=== PATIENT | male | born 1970 | race Caucasian/White ===

== ENCOUNTER 2017-02-03 08:57 | Observation (INO) | payer MEDICARE ==
[~2017-02-03] VITALS: Ht 162.6 cm; Wt 103.3 kg
[~2017-02-03 08:57] MED LIST: ARIP10TA15 PO; LITH150C PO; METO25TA6 PO; TRAZ-173 PO
--- OUTSIDE RECORDS SUMMARY | 2017-02-03 09:03 | XMS REPORT ---
Author Angelica Hanson Organization [employer] Address Unknown Phone Unavailable Care Team Providers Care Information Coder Name Role Phone Angelica Pinon CP Unavailable Allergies No Known Allergies Problems Problem Type Condition Code Onset Dates Condition Status Assessment Hyperthyroidism E05.90 Active Problem Hyperthyroidism E05.90 Active Medications No Known Medications Results No Known Results Summary Purpose eClinicalWorks Submission
--- OUTSIDE RECORDS SUMMARY | 2017-02-03 09:03 | XMS REPORT ---
Author Angelica Hanson Organization [employer] Address Unknown Phone Unavailable Care Team Providers Care Rn Delivery Name Role Phone Angelica Pinon CP Unavailable Allergies No Known Allergies Problems Problem Type Condition Code Onset Dates Condition Status Problem Hyperthyroidism E05.90 Active Medications No Known Medications Results No Known Results Summary Purpose eClinicalWorks Submission
--- OUTSIDE RECORDS SUMMARY | 2017-02-03 09:03 | XMS REPORT ---
Author Angelica Hanson Organization [employer] Address Unknown Phone Unavailable Care Team Providers Care Carpet Or Rug Layer Helper Name Role Phone Angelica Pinon CP Unavailable Allergies No Known Allergies Problems Problem Type Condition Code Onset Dates Condition Status Problem Hyperthyroidism E05.90 Active Medications No Known Medications Results No Known Results Summary Purpose eClinicalWorks Submission
--- OUTSIDE RECORDS SUMMARY | 2017-02-03 09:03 | XMS REPORT ---
Author Angelica Hanson [facility] eClinical[employer] Address Unknown Phone Unavailable Care Team Providers Care Clinical Education Academic Coordinator Name Role Phone Angelica Pinon CP Unavailable Allergies, Adverse Reactions, Alerts Substance Reaction Event Type N.K.D.A. Info Not Available Non Drug Allergy Problems Problem Type Condition Code Onset Dates Condition Status Assessment Shortness of breath R06.02 Active Assessment Chest pain, unspecified type R07.9 Active Problem Hyperthyroidism E05.90 Active Assessment Chronic atrial fibrillation I48.2 Active Medications Medication Code System Code Instructions Start Date End Date Status Dosage Aripiprazole [facility] [address]-80 15 MG Orally Once a day 1 tablet Methimazole [facility] [address]-61 5 MG Orally 3 Times a day 2 tablet [place] Carbonate [facility] [address]-79 150 MG Orally Twice every day not defined Metoprolol Tartrate [facility] [address]-73 25 MG Orally Twice a day Jul 15, 2016 1/2 tablet Ferrous Gluconate [facility] [address]-34 324 (38 Fe) MG Orally not defined Protonix [facility] [address]-41 40 MG Orally Once a day 1 tablet Clobetasol Propionate [facility] [address]-15 0.05 % Externally Twice a day Sep 02, 2016 Oct 02, 2016 1 application to affected area Trazodone HCl [facility] [address]-57 100 MG Orally Once a day 2 tablet at bedtime Aspir-81 [facility] [address]-01 81 MG Orally Once a day Jul 15, 2016 Sep 13, 2016 1 tablet Procedures Procedure Coding System Code Date [facility] visit Established Patient CPT-4 G0467 Sep 09, 2016 OFFICE VISIT, EST-LOW COMPLEXITY (15 MIN.) CPT-4 75347 Sep 09, 2016 -ELECTROCARDIOGRAM, COMPLETE CPT-4 91768 Sep 09, 2016 Vital Signs Date/Time: Sep 09, 2016 Temperature 98.0 F Height 64 in Weight 205.8 lbs Blood Pressure Diastolic 62 mm Hg Blood Pressure Systolic 110 mm Hg Cardiac Monitoring Heart Rate 78 /min BMI 35.32 Index Oximetry 98 % Results No Known Results Summary Purpose eClinicalWorks Submission
--- OUTSIDE RECORDS SUMMARY | 2017-02-03 09:03 | XMS REPORT ---
Author Angelica Hanson [facility] eClinicalWorks Address Unknown Phone Unavailable Care Team Providers Care Barber Shop Operator Name Role Phone Angelica Pinon CP Unavailable Allergies No Known Allergies Problems Problem Type Condition Code Onset Dates Condition Status Assessment Hyperthyroidism E05.90 Active Problem Hyperthyroidism E05.90 Active Medications Medication Code System Code Instructions Start Date End Date Status Dosage Trazodone HCl [facility] [address]-22 150 MG Orally Once a day 1 tablet at bedtime Aripiprazole [facility] [address]-87 15 MG Orally Once a day 1 tablet Aspir-81 [facility] [address]-98 81 MG Orally Once a day Jul 15, 2016 Sep 13, 2016 1 tablet Metoprolol Tartrate [facility] [address]-60 25 MG Orally Twice a day Jul 15, 2016 1/2 tablet Methimazole [facility] [address]-30 5 MG Orally 3 Times a day 2 tablet [place] Carbonate [facility] [address]-52 150 MG Orally Twice every day not defined Procedures Procedure Coding System Code Date COMPREHENSIVE METABOLIC PANEL CPT-4 06976 Jul 15, 2016 LIPID PANEL CPT-4 75607 Jul 15, 2016 COMPLETE CBC W/AUTO DIFF WBC CPT-4 37994 Jul 15, 2016 TSH CPT-4 36180 Jul 15, 2016 Results Name Result Date Reference Range Unit Abnormality Flag TSH ----TSH <0.01 [id number] 0.35-4.94 uIU/mL L Lipid Panel ----VLDL Cholesterol 25 73275859 0-28 mg/dL ----LDL Cholesterol 71 82597801 0-130 mg/dL ----Cardiac Risk 3.5 57164845 0.0-5.7 ----Cholesterol 134 96590297 0-199 mg/dL ----HDL Cholesterol 38 88873406 40-84 mg/dL L ----Triglycerides 127 05606648 0-149 mg/dL CBC With Platelet and Differential ----Absolute Basophils 0.02 01639261 0.00-0.20 10*3 ----Absolute Eosinophils 0.40 98667253 0.00-0.50 10*3 ----Lymphocytes 14 61794664 20-46 % L ----Neutrophils 73 17497438 51-75 % ----Platelet Count 231 00549819 150-400 K/uL ----Eosinophils 5 77367705 0-4 % H ----RDW 20.6 28155777 11.5-14.5 % H ----Monocytes 8 10812791 4-11 % ----MCHC 32.3 37057155 32.0-36.0 g/dL ----MCH 20.4 50133506 27.0-32.0 pg L ----MCV 63.1 41739254 82.0-99.0 fL L ----Absolute Neutrophils 6.30 33995973 1.90-7.00 10*3 ----Immature Granulocytes 0.1 03057466 0.0-1.0 % ----Absolute Monocytes 0.68 05538164 0.30-1.00 10*3 ----Absolute Lymphocytes 1.25 59971008 0.80-3.30 10*3 ----Basophils 0 84774409 0-2 % ----Differential Scanned Slide 20160715 ----Polychromasia Occasional 20160715 * ----Microcytes Present 20160715 * ----WBC 8.7 13013506 4.8-10.8 K/uL ----RBC 5.78 85767192 4.60-6.20 10*6/uL ----HGB 11.8 54383973 14.0-18.0 g/dL L ----HCT 36.5 00961470 42.0-52.0 % L Comprehensive Metabolic Panel (CMP) ----Chloride 110 11110451 99-111 mEq/L ----Potassium 4.4 55999132 3.5-5.2 mEq/L ----Albumin 3.7 45572205 3.5-5.0 g/dL ----CO2 22 54574171 23-31 mEq/L L ----Alkaline Phosphatase 108 44222470 40-150 U/L ----Protein 6.8 53613474 6.1-7.7 g/dL ----Bilirubin Total 1.0 20160715 0.2-1.2 mg/dL ----Anion Gap 7 20160715 3-20 ----Calcium 8.9 82751907 8.9-10.5 mg/dL ----Globulin 3.1 20160715 1.8-4.0 g/dL ----Sodium 139 20160715 135-144 mEq/L ----BUN 15 20160715 9-21 mg/dL ----ALT (SGPT) 20 20160715 0-55 U/L ----AST (SGOT) 16 20160715 5-34 U/L ----Creatinine 0.75 20160715 0.72-1.25 mg/dL ----Glucose 94 20160715 70-99 mg/dL eGFR ----eGFR >60 20160715 >60 mL/min Non-HDL Cholesterol ----Non-HDL Cholesterol 96 27888189 0-159 mg/dL Summary Purpose eClinicalWorks Submission
--- OUTSIDE RECORDS SUMMARY | 2017-02-03 09:03 | XMS REPORT | Continuity of Care Document ---
Author Author [facility] Organization [facility] Address Unknown Phone Unavailable Allergies Active Description Code Type Severity Reaction Onset Reported/Identified Relationship to Patient Clinical Status Yes No Known Allergies MED N/A N/A Yes No Known Allergies Drug Allergy 11/05/2012 Yes No Known Drug Allergies Drug Allergy 11/05/2012 Yes No Known Food Allergies Food Allergy 11/05/2012 Yes No Known Allergies No Known Allergies Drug Allergy Unknown N/A 09/26/2014 Medications Medication Packaging Start Date Stop Date Route Dosage Sig TraZODone HCl 100 MG Oral Tablet 06/27/2015 10/26/2015 ORAL 100MG TAKE 1 OR 2 TABLETS AT BEDTIME NEEDED FOR SLEEP. Abilify 10 MG Oral Tablet 06/27/2015 10/26/2015 ORAL 10MG one tab q hs TraZODone HCl 100 MG Oral Tablet 11/07/2015 03/07/2016 ORAL 100MG TAKE 1 OR 2 TABLETS AT BEDTIME NEEDED FOR SLEEP. ARIPiprazole 10 MG Oral Tablet 11/22/2015 01/22/2016 ORAL 10MG TAKE ONE TABLET BY MOUTH ONCE DAILY AT BEDTIME ARIPiprazole 10 MG Oral Tablet 04/09/2016 10/07/2016 ORAL 10MG TAKE ONE TABLET BY MOUTH ONCE DAILY AT BEDTIME TraZODone HCl 100 MG Oral Tablet 04/09/2016 10/07/2016 ORAL 100MG TAKE 1 OR 2 TABLETS AT BEDTIME NEEDED FOR SLEEP. ARIPiprazole 15 MG Oral Tablet 07/09/2016 09/08/2016 ORAL 15MG TAKE 1 TABLET DAILY. [place] Carbonate 150 MG Oral Capsule 07/09/2016 09/08/2016 ORAL 150MG TAKE 1 CAPSULE TWICE DAILY. TraZODone HCl 100 MG Oral Tablet 07/09/2016 01/06/2017 ORAL 100MG TAKE 1 OR 2 TABLETS AT BEDTIME NEEDED FOR SLEEP. Problems Date Dx Coded Attending Type Code Diagnosis Diagnosed By 11/05/2012 Benjamin Hernandez MD Final 242.90 THYROTOX NOS W/O CRISIS 11/05/2012 Benjamin Hernandez MD Final 284.19 PANCYTOPENIA NEC 11/05/2012 Mary JEROME, Benjamin Jacob Final 296.80 BIPOLAR DISORDER NOS 11/05/2012 Mary JEROME, Benjamin Jacob Final 401.9 HYPERTENSION NOS 11/05/2012 Mary JEROME, Benjamin Jacob Final 427.31 ATRIAL FIBRILLATION 11/05/2012 Mary JEROME, Benjamin Jacob Admitting 786.50 CHEST PAIN NOS 11/05/2012 Mary JEROME, Benjamin Jacob Final 787.91 DIARRHEA 11/05/2012 Mary JEROME, Benjamin Jacob Final 790.4 ELEVAT TRANSAMINASE/LDH 11/05/2012 Mary JEROME, Benjamin Jacob Final V15.81 HX NONCOMPLIANCE MED [place] 11/05/2012 Mary JEROME, Benjamin Jacob Final V60.0 LACK OF HOUSING 11/07/2015 F F31.13 Bipolar disorder, current episode manic without psychotic features, severe Chadwick, Jermaine 11/07/2015 F E04.9 Nontoxic goiter, unspecified Chadwick, Jermaine 11/07/2015 F F10.20 Alcohol dependence, uncomplicated Chadwick , Jermaine 11/07/2015 F E04.9 Nontoxic goiter, unspecified 11/07/2015 F F10.20 Alcohol dependence, uncomplicated 11/07/2015 F F31.13 Bipolar disorder, current episode manic without psychotic features, severe 01/09/2016 F F31.13 Bipolar disorder, current episode manic without psychotic features, severe DanielleNicole ignacio Betty 01/09/2016 F E04.9 Nontoxic goiter, unspecified Danielle, Nicole Betty 01/09/2016 F F10.20 Alcohol dependence, uncomplicated Danielle , Nicole Betty 01/09/2016 F E04.9 Nontoxic goiter, unspecified 01/09/2016 F F10.20 Alcohol dependence, uncomplicated 01/09/2016 F F31.13 Bipolar disorder, current episode manic without psychotic features, severe 04/09/2016 F F31.13 Bipolar disorder, current episode manic without psychotic features, severe Chadwick, Jermaine 04/09/2016 F E04.9 Nontoxic goiter, unspecified Chadwick, Jermaine 04/09/2016 F F10.20 Alcohol dependence, uncomplicated Chadwick , Jermaine 04/09/2016 F E04.9 Nontoxic goiter, unspecified 04/09/2016 F F10.20 Alcohol dependence, uncomplicated 04/09/2016 F F31.13 Bipolar disorder, current episode manic without psychotic features, severe 07/09/2016 F F31.13 Bipolar disorder, current episode manic without psychotic features, severe DanielleNicole ignacion 07/09/2016 F E04.9 Nontoxic goiter, unspecified DanielleNicole ignacion 07/09/2016 F F10.20 Alcohol dependence, uncomplicated Danielle , Nicole Gongoran 07/09/2016 F E04.9 Nontoxic goiter, unspecified 07/09/2016 F F10.20 Alcohol dependence, uncomplicated 07/09/2016 F F31.13 Bipolar disorder, current episode manic without psychotic features, severe 11/13/2016 F F31.31 Bipolar disorder, current episode depressed, mild Morales, Shweta L 11/13/2016 F Z59.7 Insufficient social insurance and welfare support Psy, Batch 11/13/2016 F F31.31 Bipolar disorder, current episode depressed, mild Psy, Batch 11/13/2016 F E04.9 Nontoxic goiter, unspecified Morales, Shweta L 11/13/2016 F E05 Thyrotoxicosis (hyperthyroidism) Morales, Shweta L 11/13/2016 F E66.8 Other obesity Morales, Shweta L 11/13/2016 F Z59.7 Insufficient social insurance and welfare support Morales, Shweta L 12/01/2016 F F31.31 Bipolar disorder, current episode depressed, mild DanielleNicole ignacio Betty 12/01/2016 F E05 Thyrotoxicosis (hyperthyroidism) DanielleEvan ignacioelle Betty 12/01/2016 F Z59.7 Insufficient social insurance and welfare support Nicole Danielle Betty 12/01/2016 F E05 Thyrotoxicosis (hyperthyroidism) Psy, Batch 12/01/2016 F Z59.7 Insufficient social insurance and welfare support Psy, Batch 12/02/2016 F E05 Thyrotoxicosis (hyperthyroidism) Purnima Burgess 12/02/2016 F Z59.7 Insufficient social insurance and welfare support Purnima Burgess 12/02/2016 F F31.31 Bipolar disorder, current episode depressed, mild Psy, Batch 12/02/2016 F E04.9 Nontoxic goiter, unspecified Morales, Shweta L 12/02/2016 F E05 Thyrotoxicosis (hyperthyroidism) Morales, Shweta L 12/02/2016 F E66.8 Other obesity Morales, Shweta L 12/02/2016 F Z59.7 Insufficient social insurance and welfare support Morales, Shweta L 12/03/2016 F E05 Thyrotoxicosis (hyperthyroidism) Aditya, Purnima Xochitl 12/03/2016 F Z59.7 Insufficient social insurance and welfare support Chambers, Purnima Xochitl 12/04/2016 F E05 Thyrotoxicosis (hyperthyroidism) Chambers, Purnima Xochitl 12/04/2016 F Z59.7 Insufficient social insurance and welfare support Chambers, Purnima Xochitl 12/05/2016 F E05 Thyrotoxicosis (hyperthyroidism) Chambers, Purnima Xochitl 12/05/2016 F Z59.7 Insufficient social insurance and welfare support [place], Purnima Xochitl 12/05/2016 F F31.31 Bipolar disorder, current episode depressed, mild Chambers, Purnima Zelayae 12/05/2016 F E04.9 Nontoxic goiter, unspecified Morales, Shweta L 12/05/2016 F E05 Thyrotoxicosis (hyperthyroidism) Morales, Shweta L 12/05/2016 F E66.8 Other obesity Morales, Shweta L 12/05/2016 F Z59.7 Insufficient social insurance and welfare support Morales, Shweta L 12/05/2016 F F31.31 Bipolar disorder, current episode depressed, mild Chambers, Purnima Xochitl 12/05/2016 F F31.31 Bipolar disorder, current episode depressed, mild Chambers, Purnima Xochitl 12/10/2016 F F31.31 Bipolar disorder, current episode depressed, mild Chambers, Purnima Jane Procedures Code Description [place] [address] OFFICE/OUTPATIENT VISIT, Lakeshia Dillard 11/07/2015 89474 OFFICE/OUTPATIENT VISIT, Lakeshia Dillard 11/07/2015 20728 OFFICE/OUTPATIENT VISIT, Lakeshia Dillard 01/09/2016 52330 OFFICE/OUTPATIENT VISIT, Lakeshia Dillard 01/09/2016 72873 OFFICE/OUTPATIENT VISIT, Lakeshia Dillard 04/09/2016 15329 OFFICE/OUTPATIENT VISIT, Lakeshia Dillard 04/09/2016 61433 OFFICE/OUTPATIENT VISIT, Lakeshia Dillard 07/09/2016 84822 OFFICE/OUTPATIENT VISIT, Lakeshia Dillard 07/09/2016 47826 Shweta Nielsen [id number] Shweta Nielsen [id number] OFFICE/OUTPATIENT VISIT, Lakeshia Jasso 12/01/2016 50559 OFFICE/OUTPATIENT VISIT, Lakeshia Jasso 12/01/2016 35808 INITIAL HOSPITAL CARE Coyner Sally S 12/02/2016 99043 SUBSEQUENT HOSPITAL CARE CoynerSally 12/03/2016 06018 SUBSEQUENT HOSPITAL CARE CoynerSally 12/04/2016 98379 HOSPITAL DISCHARGE DAY Sally Drew 12/05/2016 Results Encounters ACCT No. Visit Date/Time Discharge Status Pt. Type Provider Facility Loc./Unit Complaint [id number] 11/05/2012 19:09:00 2011 19:03:00 DIS Inpatient Mary JEROME, Benjamin Jacob [facility] on [address]
--- OUTSIDE RECORDS SUMMARY | 2017-02-03 09:03 | XMS REPORT ---
Author Author Lopez Cee Organization e[employer]Works Address Unknown Phone Unavailable Care Team Providers Care Flat Sorter Processor Name Role Phone Lopez Cee CP Unavailable Allergies, Adverse Reactions, Alerts Substance Reaction Event Type N.K.D.A. Info Not Available Non Drug Allergy Problems Problem Type Condition Code Onset Dates Condition Status Assessment Encounter for dental examination and cleaning without abnormal findings Z01.20 Active Problem Hyperthyroidism E05.90 Active Medications Medication Code System Code Instructions Start Date End Date Status Dosage Methimazole [facility] [address]-63 5 MG Orally 3 Times a day 2 tablet Aspir-81 [facility] [address]-45 81 MG Orally Once a day Jul 15, 2016 Sep 13, 2016 1 tablet Ferrous Gluconate [facility] [address]-51 324 (38 Fe) MG Orally not defined [place] Carbonate [facility] [address]-02 150 MG Orally Twice every day not defined Trazodone HCl [facility] [address]-83 100 MG Orally Once a day 2 tablet at bedtime Clobetasol Propionate [facility] [address]-07 0.05 % Externally Twice a day Sep 02, 2016 Oct 02, 2016 1 application to affected area Protonix [facility] [address]-53 40 MG Orally Once a day 1 tablet Metoprolol Tartrate [facility] [address]-22 25 MG Orally Twice a day Jul 15, 2016 1/2 tablet Aripiprazole [facility] [address]-71 15 MG Orally Once a day 1 tablet Procedures Procedure Coding System Code Date INTRAORL - CMPL SERIES CODE 46740 CPT-4 D0210 Sep 09, 2016 COMP ORAL EVALUATION - NEW/EST PT CPT-4 D0150 Sep 09, 2016 Results No Known Results Summary Purpose eClinicalWorks Submission
--- OUTSIDE RECORDS SUMMARY | 2017-02-03 09:03 | XMS REPORT ---
Author Angelica Hanson Organization [employer] Address Unknown Phone Unavailable Care Team Providers Care Ornamental Iron Worker Apprentice Name Role Phone Angelica Pinon CP Unavailable Allergies No Known Allergies Problems Problem Type Condition Code Onset Dates Condition Status Problem Hyperthyroidism E05.90 Active Medications No Known Medications Results No Known Results Summary Purpose eClinicalWorks Submission
--- OUTSIDE RECORDS SUMMARY | 2017-02-03 09:03 | XMS REPORT ---
Author Angelica Hanson Organization [employer] Address Unknown Phone Unavailable Care Team Providers Care Document Examiner Name Role Phone Angelica Pinon CP Unavailable Allergies No Known Allergies Problems Problem Type Condition Code Onset Dates Condition Status Problem Hyperthyroidism E05.90 Active Medications Medication Code System Code Instructions Start Date End Date Status Dosage Aripiprazole [facility] [address]-87 15 MG Orally Once a day 1 tablet Metoprolol Tartrate [facility] [address]-13 25 MG Orally Twice a day Jul 15, 2016 1/2 tablet Trazodone HCl [facility] [address]-34 150 MG Orally Once a day 1 tablet at bedtime [place] Carbonate [facility] [address]-73 150 MG Orally Twice every day not defined Aspir-81 [facility] [address]-90 81 MG Orally Once a day Jul 15, 2016 Sep 13, 2016 1 tablet Methimazole [facility] [address]-36 5 MG Orally 3 Times a day 2 tablet Results No Known Results Summary Purpose eClinicalWorks Submission
--- OUTSIDE RECORDS SUMMARY | 2017-02-03 09:04 | XMS REPORT ---
Author Angelica Hanson Organization [employer] Address Unknown Phone Unavailable Care Team Providers Care Paper Products Machine Operator Name Role Phone Angelica Pinon CP Unavailable Allergies No Known Allergies Problems Problem Type Condition Code Onset Dates Condition Status Problem Hyperthyroidism E05.90 Active Medications Medication Code System Code Instructions Start Date End Date Status Dosage Protonix [facility] [address]-33 40 MG Orally Once a day 1 tablet Results No Known Results Summary Purpose eClinicalWorks Submission
--- OUTSIDE RECORDS SUMMARY | 2017-02-03 09:04 | XMS REPORT ---
Author Angelica Hanson Organization [employer] Address Unknown Phone Unavailable Care Team Providers Care Mid Level Practitioner Name Role Phone Angelica Pinon CP Unavailable Allergies, Adverse Reactions, Alerts Substance Reaction Event Type N.K.D.A. Info Not Available Non Drug Allergy Problems Problem Type Condition Code Onset Dates Condition Status Assessment Hyperthyroidism E05.90 Active Assessment Atrial fibrillation, unspecified type I48.91 Active Problem Hyperthyroidism E05.90 Active Medications Medication Code System Code Instructions Start Date End Date Status Dosage Aripiprazole [facility] [address]-89 15 MG Orally Once a day 1 tablet Metoprolol Tartrate [facility] [address]-33 25 MG Orally Twice a day Jul 15, 2016 1/2 tablet [place] Carbonate [facility] [address]-42 150 MG Orally Twice every day not defined Trazodone HCl [facility] [address]-66 150 MG Orally Once a day 1 tablet at bedtime Aspir-81 [facility] [address]-13 81 MG Orally Once a day Jul 15, 2016 Sep 13, 2016 1 tablet Methimazole [facility] [address]-62 5 MG Orally 3 Times a day 2 tablet Procedures Procedure Coding System Code Date [facility] visit New Patient CPT-4 G0466 Jul 15, 2016 OFFICE VISIT, FILLING LAYER UP-LOW COMPLEXITY (30 MIN.) CPT-4 27148 Jul 15, 2016 -ELECTROCARDIOGRAM, COMPLETE CPT-4 90717 Jul 15, 2016 Vital Signs Date/Time: Jul 15, 2016 Temperature 99.5 F Height 64 in Weight 210.4 lbs Blood Pressure Diastolic 52 mm Hg Blood Pressure Systolic 104 mm Hg Cardiac Monitoring Heart Rate 101 /min BMI 36.11 Index Oximetry 98 % Results Name Result Date Reference Range Unit Abnormality Flag GENERAL, ELECTROCARDIOGRAM, COMPLETE Summary Purpose eClinicalWorks Submission
--- OUTSIDE RECORDS SUMMARY | 2017-02-03 09:04 | XMS REPORT | Continuity of Care Document ---
Author Author [facility] Organization [facility] Address Unknown Phone Unavailable Support Name Relationship Address Phone ROSIE CRAVEN MD [address] [place] [address] Unavailable HARRIET GOMEZ Next Of Kin [place], [place] [phone] Insurance Providers Guarantor Alfonzo Mosquera Address [address] [place] [address] Email DENIED/NO TO PT [place] Payer Medicare Policy Number [id number] Subscriber's Name FifiAlfonzo Relationship 18 Self Advance Directives Directive Response Recorded Date/Time Advanced Directives Type None 06/20/16 2:40pm Chief Complaint and Reason for Visit Chief Complaint Dyspnea/Respdistress Reason for Visit Hyperthyroidism Atrial flutter with rapid ventricular response Problems Active Problems Medical Problem Onset Date Status Atrial fibrillation Unknown Acute Hypothyroidism Unknown Acute Past Problems Medical Problem Onset Date Atrial flutter with rapid ventricular response Unknown Hyperthyroidism Unknown Medications Current Home Medications Medication Dose Units Route Directions Days Qty Instructions Start Date Aripiprazole (Abilify) 10 Mg Tablet 10 Mg Oral Daily 10/24/15 Methimazole 10 Mg Tablet 10 Mg Oral Three Times A Day 10/24/15 Trazodone Hcl 100 Mg Tablet 1-2 Tab Oral Bedtime as needed for Sleep 10/24/15 Social History Social History Problem Response Recorded Date/Time Onset Date Status Chewing Tobacco Status No 06/20/2016 2:40pm Not Applicable Not Applicable Hx Substance Use No 06/20/2016 2:40pm Not Applicable Not Applicable Hx Alcohol Use No 06/20/2016 2:40pm Not Applicable Not Applicable Tobacco Usage none 10/24/2015 3:34pm Not Applicable Not Applicable Query Response Start Date Stop Date Smoking Status Never smoker Hospital Discharge Instructions No hospital discharge instructions. Plan of Care Discharge Date 06/20/16 8:32pm Disposition 02 TO [facility] Condition at Discharge Stable Prescriptions See Medication Section Functional Status No functional status results. Allergies, Adverse Reactions, Alerts No known allergies. Immunizations Query Response on File Recorded Date/Time Influenza Vaccine Hx NONE 06/20/16 2:40pm Vital Signs Acute Vital Signs Vital Response Date/Time Temperature (Fahrenheit) 98.9 deg F (96.8 - 99.1) 06/20/2016 8:32pm Temperature (Calculated Celsius) 37.61104 degrees C (36.0 - 37.3) 06/20/2016 8:32pm Pulse Rate (adult) 98 bpm (60 - 100) 06/20/2016 8:32pm Respiratory Rate 24 breaths/min (10 - 20) 06/20/2016 8:32pm O2 Sat by Pulse Oximetry 98 % (90 - 100) 06/20/2016 8:32pm Oxygen Flow Rate 15.00 L/min 06/20/2016 2:40pm Blood Pressure 122/61 mm Hg 06/20/2016 8:32pm Height (Feet) 5 feet 06/20/2016 2:40pm Height (Inches) 4.00 inches 06/20/2016 2:40pm Weight (Kilograms) 89.800 kg 06/20/2016 2:40pm Body Mass Index (BMI) 33.0 06/20/2016 2:40pm Results Laboratory Results Test Name Result Units Flags Reference Collection Date/Time Result Date/ Time Comments White Blood Count 13.4 T/MM3 H 4.5-11.0 06/20/2016 3:42pm 06/20/2016 4: 03pm Red Blood Count 6.35 M/MM3 H 4.50-5.90 06/20/2016 3:42pm 06/20/2016 4: 03pm Hemoglobin 12.6 GM/DL L 13.5-17.5 06/20/2016 3:42pm 06/20/2016 4:03pm Hematocrit 37.1 % L 41-53 06/20/2016 3:42pm 06/20/2016 4:03pm Mean Corpuscular Volume 58.4 UM3 L 80-100 06/20/2016 3:42pm 06/20/2016 4 :03pm Mean Corpuscular Hemoglobin 19.8 UUG L 26-34 06/20/2016 3:42pm 2015 4:03pm Mean Corpuscular Hemoglobin Concent 34.0 GM/DL 31-37 06/20/2016 3:42pm 06/20/2016 4:03pm RDW Standard Deviation 32.1 FL L 36.9-50.2 06/20/2016 3:42pm 06/20/2016 4:03pm Platelet Count 243 T/MM3 130-400 06/20/2016 3:42pm 06/20/2016 4:03pm Neutrophils % (Manual) 93.0 % H 33-66 06/20/2016 3:42pm 06/20/2016 4: 07pm Lymphocytes % (Manual) 4.0 % L 23-45 06/20/2016 3:42pm 06/20/2016 4: 07pm Monocytes % (Manual) 3.0 % 0-9.0 06/20/2016 3:42pm 06/20/2016 4:07pm Absolute Neutrophils (Manual) 12.5 T/MM3 H 1.8-7.7 06/20/2016 3:42pm 4:07pm Lymphocytes # (Manual) 0.5 T/MM3 L 1-4.8 06/20/2016 3:42pm 06/20/2016 4: 07pm Monocytes # (Manual) 0.4 T/MM3 0-0.8 06/20/2016 3:42pm 06/20/2016 4: 07pm Red Cell Morphology Comment ABNORMAL 06/20/2016 3:42pm 06/20/2016 4 :07pm Anisocytosis 1+ 06/20/2016 3:42pm 06/20/2016 4:07pm Microcytosis 1+ 06/20/2016 3:42pm 06/20/2016 4:07pm Mell Cells 1+ 06/20/2016 3:42pm 06/20/2016 4:07pm Icterus Index < 2 0-7 06/20/2016 3:42pm 06/20/2016 4:01pm Chemistry Specimen Hemolysis < 15 0-25 06/20/2016 3:42pm 06/20/2016 4 :01pm 0-25: Specimen Exhibited No Hemolysis. Turbidity < 20 0-20 06/20/2016 3:pm 06/20/2016 4:01pm Sodium Level 141 MEQ/L 134-144 06/20/2016 3:42pm 06/20/2016 4:03pm Potassium Level 2.5 MEQ/L *L 3.6-5 06/20/2016 3:42pm 06/20/2016 4:13pm Chloride Level 104 MEQ/L 98-107 06/20/2016 3:42pm 06/20/2016 4:03pm Carbon Dioxide Level 12 MEQ/L L 22-30 06/20/2016 3:42pm 06/20/2016 4: 03pm Anion Gap 25 MEQ/L H 5-15 06/20/2016 3:42pm 06/20/2016 4:03pm Blood Urea Nitrogen 19.0 MG/DL 9-20 06/20/2016 3:42pm 06/20/2016 4: 03pm Creatinine 1.2 MG/DL 0.8-1.5 06/20/2016 3:42pm 06/20/2016 4:03pm BUN/Creatinine Ratio 16 RATIO 6-26 06/20/2016 3:42pm 06/20/2016 4:03pm Glomerular Filtration Rate Calc 65 06/20/2016 3:42pm 06/20/2016 4: 03pm Glucose Level 158 MG/DL H 75-110 06/20/2016 3:42pm 06/20/2016 4:03pm Calculated Osmolality 276 MOSM/KG 261-280 06/20/2016 3:42pm 06/20/2016 4:03pm Calcium Level 8.9 MG/DL 8.4-10.2 06/20/2016 3:42pm 06/20/2016 4:03pm Total Bilirubin 3.30 MG/DL H 0.20-1.30 06/20/2016 3:42pm 06/20/2016 4: 03pm Alkaline Phosphatase 81 U/L 38-126 06/20/2016 3:42pm 06/20/2016 4:03pm Total Protein 6.4 G/DL 6.3-8.2 06/20/2016 3:42pm 06/20/2016 4:03pm Albumin 3.3 G/DL L 3.5-5.0 06/20/2016 3:42pm 06/20/2016 4:03pm Globulin 3.1 G/DL 2.4-3.6 06/20/2016 3:42pm 06/20/2016 4:03pm Albumin/Globulin Ratio 1.1 RATIO 1.1-2.2 06/20/2016 3:42pm 06/20/2016 4 :03pm Aspartate Amino Transf (AST/SGOT) 110 U/L H 17-59 06/20/2016 3:42pm 4:03pm Alanine Aminotransferase (ALT/SGPT) 93 U/L H 21-72 06/20/2016 3:42pm 4:03pm Troponin I 0.061 ng/ml 0-0.12 06/20/2016 3:42pm 06/20/2016 4:12pm Troponin values with a difference of 55% increase from orginal troponin value represent a true biological DELTA value. (%increase Calc=Orginal Troponin value, divided by subsequent Troponin value, multiplied by 100) C-Reactive Protein 12.1 MG/L H 0-9 06/20/2016 3:42pm 06/20/2016 4:03pm SF-Lgo-W-Type Natriuretic Peptide 467 PG/ML H 0-175 06/20/2016 3:42pm 4:12pm Rule in cut points: <50 years old=450; 50-75 years old=900; >75 years old=1800; When utilizing ProBNP rule-in cut points, adjustment for impaired renal function is typically not required. Magnesium Level 1.5 MG/DL L 1.6-2.3 06/20/2016 3:42pm 06/20/2016 4:03pm Acetaminophen Level < 10 UG/ML L 10-06/20/2016 3:pm 06/20/2016 4: 01pm TOXIC <4 HR POST INGESTION: >150 MG/L; TOXIC <12 HR POST INGESTION: >50 MG/L Salicylates Level < 1.0 MG/DL L 2-20 06/20/2016 3:pm 06/20/2016 4: 01pm Alcohol, Quantitative <10 MG/DL <10 06/20/2016 3:pm 06/20/2016 4: 01pm [place] Level < 0.2 MMOL/L L 0.6-1.2 06/20/2016 3:pm 06/20/2016 4: 04pm Thyroid Stimulating Hormone (TSH) < 0.02 MIU/L L 0.47-4.68 06/20/2016 3: pm 06/20/2016 4:34pm Arterial Blood pH 7.410 7.350-7.450 06/20/2016 4:20pm 06/20/2016 4: 31pm Arterial Blood Partial Pressure CO2 20 MMHG *L 34-45 06/20/2016 4: 4:31pm Arterial Blood pO2 at Patient Temp 98 MMHG 80-100 06/20/2016 4: 4:31pm Arterial Blood HCO3 13 MEQ/L L -06/20/2016 4:06/20/2016 4: 31pm Arterial Blood Total CO2 13.3 MEQ/L L -06/20/2016 4:2015 4:31pm Arterial Blood Base Excess -9.8 MMOL/L L -2.0-2.0 06/20/2016 4: 4:31pm Arterial Blood Oxygen Saturation 98.0 % 95.0-98.0 06/20/2016 4: 4:31pm Oxygen Delivery Method (LAB) ROOM AIR 06/20/2016 4:06/20/2016 4:31pm Urine Collection Type [place]WELL[place] 06/20/2016 4:2015 4:40pm Urine Color YELLOW YELLOW 06/20/2016 4:06/20/2016 4:40pm Urine Turbidity SL CLOUDY CLEAR 06/20/2016 4:06/20/2016 4:40pm Urine Specific [place] 1.010 L 1.015-1.025 06/20/2016 4:2015 4:40pm Urine pH 6.0 5.0-8.0 06/20/2016 4:06/20/2016 4:40pm Urine Leukocyte Esterase NEGATIVE NEGATIVE 06/20/2016 4:2015 4:40pm Urine Nitrite NEGATIVE NEGATIVE 06/20/2016 4:06/20/2016 4:40pm Urine Protein 1+ A NEGATIVE 06/20/2016 4:06/20/2016 4:40pm Urine Glucose (UA) NEGATIVE NEGATIVE 06/20/2016 4:06/20/2016 4: 40pm Urine Ketones 2+ A NEGATIVE 06/20/2016 4:06/20/2016 4:40pm Urine Urobilinogen 0.2 EU/DL NORMAL 06/20/2016 4:06/20/2016 4: 40pm Urine Bilirubin NEGATIVE NEGATIVE 06/20/2016 4:27pm 06/20/2016 4: 40pm Urine Blood 3+ A NEGATIVE 06/20/2016 4:pm 06/20/2016 4:40pm Urine WBC 0-1 /HPF 0-5 06/20/2016 4:pm 06/20/2016 5:10pm Urine RBC 10-20 /HPF H 0-3 06/20/2016 4:pm 06/20/2016 5:10pm Urine Bacteria NONE SEEN NEGATIVE 06/20/2016 4:06/20/2016 5: 10pm Urine Amorphous Urates FEW 06/20/2016 4:pm 06/20/2016 5:10pm Urine Mucus PRESENT 06/20/2016 4:pm 06/20/2016 5:10pm Urine Culture Indicated CULT NOT INDICATED 06/20/2016 4:pm 2015 5:10pm Glucometer 68 mg/dL L 75-110 06/20/2016 5:22pm 06/20/2016 5:26pm Name: ALFONZO MOSQUERA Unit #: [id number] : 1970 Sex: M Admit Date: Loc / Svc: ED Discharge Date: DIAGNOSTIC IMAGING REPORT Report #: [id number] [place], [place] Indication: ITS.REASON: SVT PROCEDURE: CHEST 1 VIEW: Encounter: Initial Comparison: October 24, 2015 FINDINGS: The lungs are clear. There is no abnormal airspace opacity, pleural effusion or pneumothorax identified. The heart size, pulmonary vasculature and mediastinum are within normal limits. IMPRESSION: No acute cardiopulmonary abnormality. . Procedures No known history of procedures. Encounters Encounter Location Arrival/Admit Date Discharge/Depart Date Attending Provider Departed Emergency Room [facility] 06/20/16 2:38pm 06/20/16 8: 32pm ROSIE CRAVEN MD Recent Diagnosis
--- OUTSIDE RECORDS SUMMARY | 2017-02-03 09:04 | XMS REPORT ---
Author Angelica Hanson Organization [employer] Address Unknown Phone Unavailable Care Team Providers Care Sewing Department Supervisor Name Role Phone Angelica Pinon CP Unavailable Allergies No Known Allergies Problems Problem Type Condition Code Onset Dates Condition Status Problem Hyperthyroidism E05.90 Active Medications No Known Medications Results No Known Results Summary Purpose [employer] Submission
--- OUTSIDE RECORDS SUMMARY | 2017-02-03 09:04 | XMS REPORT ---
Author Angelica Hanson Organization [employer] Address Unknown Phone Unavailable Care Team Providers Care Tip Scourer Name Role Phone Angelica Pinon CP Unavailable Allergies No Known Allergies Problems Problem Type Condition Code Onset Dates Condition Status Problem Hyperthyroidism E05.90 Active Medications Medication Code System Code Instructions Start Date End Date Status Dosage Methimazole [facility] [address]-44 5 MG Orally 3 Times a day 2 tablet Aspir-81 [facility] [address]-83 81 MG Orally Once a day Jul 15, 2016 Sep 13, 2016 1 tablet [place] Carbonate [facility] [address]-44 150 MG Orally Twice every day not defined Trazodone HCl [facility] [address]-28 150 MG Orally Once a day 1 tablet at bedtime Aripiprazole [facility] [address]-71 15 MG Orally Once a day 1 tablet Metoprolol Tartrate [facility] [address]-08 25 MG Orally Twice a day Jul 15, 2016 1/2 tablet Results No Known Results Summary Purpose [employer] Submission
--- OUTSIDE RECORDS SUMMARY | 2017-02-03 09:04 | XMS REPORT ---
Author Angelica Hanson Organization [employer] Address Unknown Phone Unavailable Care Team Providers Care Bottom Ironer Name Role Phone Angelica Pinon CP Unavailable Allergies No Known Allergies Problems Problem Type Condition Code Onset Dates Condition Status Problem Hyperthyroidism E05.90 Active Medications Medication Code System Code Instructions Start Date End Date Status Dosage Protonix [facility] [address]-00 40 MG Orally Once a day 1 tablet Methimazole [facility] [address]-57 5 MG Orally 3 Times a day 2 tablet [place] Carbonate [facility] [address]-67 150 MG Orally Twice every day not defined Ferrous Gluconate [facility] [address]-77 324 (38 Fe) MG Orally not defined Metoprolol Tartrate [facility] [address]-24 25 MG Orally Twice a day Jul 15, 2016 1/2 tablet Aripiprazole [facility] [address]-04 15 MG Orally Once a day 1 tablet Trazodone HCl [facility] [address]-24 100 MG Orally Once a day 2 tablet at bedtime Results No Known Results Summary Purpose [employer] Submission
--- OUTSIDE RECORDS SUMMARY | 2017-02-03 09:04 | XMS REPORT ---
Author Angelica Hanson Organization [employer] Address Unknown Phone Unavailable Care Team Providers Care Ager Operator Name Role Phone Angelica Pinon CP Unavailable Allergies No Known Allergies Problems Problem Type Condition Code Onset Dates Condition Status Assessment Encounter for long-term current use of medication Z79.899 Active Problem Hyperthyroidism E05.90 Active Medications Medication Code System Code Instructions Start Date End Date Status Dosage Trazodone HCl [facility] [address]-53 100 MG Orally Once a day 2 tablet at bedtime Clobetasol Propionate [facility] [address]-59 0.05 % Externally Twice a day Sep 02, 2016 Oct 02, 2016 1 application to affected area Protonix [facility] [address]-83 40 MG Orally Once a day 1 tablet Aripiprazole [facility] [address]-51 15 MG Orally Once a day 1 tablet Methimazole [facility] [address]-50 5 MG Orally 3 Times a day 2 tablet Aspir-81 [facility] [address]-28 81 MG Orally Once a day Jul 15, 2016 Sep 13, 2016 1 tablet Ferrous Gluconate [facility] [address]-10 324 (38 Fe) MG Orally not defined Metoprolol Tartrate [facility] [address]-50 25 MG Orally Twice a day Jul 15, 2016 1/2 tablet [place] Carbonate [facility] [address]-76 150 MG Orally Twice every day not defined Procedures Procedure Coding System Code Date LITHIUM CPT-4 50126 Sep 02, 2016 Results No Known Results Summary Purpose [employer] Submission
--- OUTSIDE RECORDS SUMMARY | 2017-02-03 09:04 | XMS REPORT | Continuity of Care Document ---
Author Author [facility] Organization [facility] Address Unknown Phone Unavailable Support Name Relationship Address Phone ROSIE CRAVEN MD Caregiver [address] [place] [address] [place] [address] Unavailable ELISABET CALIX Next Of Kin Unknown [phone] Insurance Providers Guarantor Alfonzo Calix Address [address] [place] [address] Email DENIED/NO TO PT [place] Payer Medicare Policy Number [id number] Subscriber's Name Alfonzo Calix Relationship 18 Self Advance Directives Directive Response Recorded Date/Time Advanced Directives Type None 06/27/16 10:25am Chief Complaint and Reason for Visit Chief Complaint Psychiatric Problems Reason for Visit Suicide attempt by drug ingestion Suicidal ideation Bipolar disorder Problems Active Problems Medical Problem Onset Date Status Atrial fibrillation Unknown Acute Hypothyroidism Unknown Acute Past Problems Medical Problem Onset Date Atrial flutter with rapid ventricular response Unknown Bipolar disorder Unknown Hyperthyroidism Unknown Suicidal ideation Unknown Suicide attempt by drug ingestion Unknown Medications Current Home Medications Medication Dose Units Route Directions Days Qty Instructions Start Date Aripiprazole (Abilify) 10 Mg Tablet 10 Mg Oral Daily 10/24/15 Aspirin (Aspir 81) 81 Mg Tablet. 81 Mg Oral Daily 06/27/16 Docusate Sodium 100 Mg Capsule 100 Mg Oral Twice A Day 06/27/16 Folic Acid 1 Mg Tablet 1 Mg Oral Daily 06/27/16 [place] Carbonate 150 Mg Capsule 150 Mg Oral Twice A Day 06/27/16 Methimazole 10 Mg Tablet 10 Mg Oral Three Times A Day 10/24/15 Methimazole 10 Mg Tablet 20 Mg Oral Twice A Day 06/27/16 Metoprolol Tartrate 25 Mg Tablet 50 Mg Oral Twice Daily With Meals 06/27/16 Oxycodone Hcl 5 Mg Tablet 5 Mg Oral Every 3 Hours as needed for Pain 06/27/16 Pantoprazole Sodium 40 Mg Tablet. 40 Mg Oral Before Breakfast 06/27/16 Sennosides (Senna) 8.6 Mg Tablet 8.6 Mg Oral Daily as needed for Constipation 06/27/16 Thiamine (Thiamine Hcl) 100 Mg Tablet 100 Mg Oral Daily 06/27/16 Trazodone Hcl 100 Mg Tablet 1-2 Tab Oral Bedtime as needed for Sleep 10/24/15 Social History Social History Problem Response Recorded Date/Time Onset Date Status Hx Substance Use No 06/27/2016 10:47am Not Applicable Not Applicable Hx Alcohol Use No 06/27/2016 10:47am Not Applicable Not Applicable Tobacco Usage none 10/24/2015 3:34pm Not Applicable Not Applicable Query Response Start Date Stop Date Smoking Status Former smoker Hospital Discharge Instructions No hospital discharge instructions. Plan of Care Discharge Date 06/27/16 4:14pm Disposition 64 TO [place] Condition at Discharge Stable Prescriptions See Medication Section Functional Status No functional status results. Allergies, Adverse Reactions, Alerts No known allergies. Immunizations Query Response on File Recorded Date/Time Influenza Vaccine Hx NONE 06/27/16 10:47am Vital Signs Acute Vital Signs Vital Response Date/Time Temperature (Fahrenheit) 97.7 deg F (96.8 - 99.1) 06/27/2016 4:14pm Temperature (Calculated Celsius) 36.12888 degrees C (36.0 - 37.3) 06/27/2016 4:14pm Pulse Rate (adult) 85 bpm (60 - 100) 06/27/2016 4:14pm Respiratory Rate 27 breaths/min (10 - 20) 06/27/2016 4:14pm O2 Sat by Pulse Oximetry 99 % (90 - 100) 06/27/2016 4:14pm Oxygen Flow Rate 15.00 L/min 06/20/2016 2:40pm Blood Pressure 109/63 mm Hg 06/27/2016 4:14pm Height (Feet) 5 feet 06/27/2016 10:25am Height (Inches) 2.00 inches 06/27/2016 10:25am Weight (Kilograms) 109.000 kg 06/27/2016 10:25am Body Mass Index (BMI) 43.0 06/27/2016 10:25am Results Laboratory Results Test Name Result Units Flags Reference Collection Date/Time Result Date/ Time Comments Anisocytosis 1+ 06/20/2016 3:42pm 06/20/2016 4:07pm Microcytosis 1+ 06/20/2016 3:42pm 06/20/2016 4:07pm [place] Cells 1+ 06/20/2016 3:42pm 06/20/2016 4:07pm Total Bilirubin 3.30 MG/DL H 0.20-1.30 06/20/2016 [...] MG/L H 0-9 06/20/2016 3:42pm 06/20/2016 4:03pm PI-Bxd-B-Type Natriuretic Peptide 467 PG/ML H 0-175 06/20/2016 3:42pm 4:12pm Rule in cut points: <50 years old=450; 50-75 years old=900; >75 years old=1800; When utilizing ProBNP rule-in cut points, adjustment for impaired renal function is typically not required. Magnesium Level 1.5 MG/DL L 1.6-2.3 06/20/2016 3:42pm 06/20/2016 4:03pm Arterial Blood pH 7.410 7.350-7.450 06/20/2016 4:06/20/2016 4: 31pm Arterial Blood Partial Pressure CO2 [...] (LAB) ROOM AIR 06/20/2016 4:06/20/2016 4:31pm Urine WBC 0-1 /HPF 0-5 06/20/2016 4:06/20/2016 5:10pm Urine RBC 10-20 /HPF H 0-3 06/20/2016 4:06/20/2016 5:10pm Urine Bacteria NONE SEEN NEGATIVE 06/20/2016 4:06/20/2016 5: 10pm Urine Amorphous Urates FEW 06/20/2016 4:06/20/2016 5:10pm Urine Mucus PRESENT 06/20/2016 4:06/20/2016 5:10pm Urine Culture Indicated CULT NOT INDICATED 06/20/2016 4:2015 5:10pm Glucometer 68 mg/dL L 75-110 06/20/2016 5:pm 06/20/2016 5:26pm White Blood Count 10.9 T/MM3 4.5-11.0 06/27/2016 12:31pm 06/27/2016 12: 54pm Red Blood Count 5.36 M/MM3 4.50-5.90 06/27/2016 12:06/27/2016 12: 54pm Hemoglobin 10.6 GM/DL L 13.5-17.5 06/27/2016 12:31p 06/27/2016 12:54pm Hematocrit 32.7 % L 41-53 06/27/2016 12:31p 06/27/2016 12:54pm Mean Corpuscular Volume 61.0 UM3 L 80-100 06/27/2016 12:31p 06/27/2016 12:54pm Mean Corpuscular Hemoglobin 19.8 UUG L 26-34 06/27/2016 12:31p 2015 12:54pm Mean Corpuscular Hemoglobin Concent 32.4 GM/DL 31-37 06/27/2016 12:31p 06/27/2016 12:54pm RDW Standard Deviation 33.7 FL L 36.9-50.2 06/27/2016 12:31p 2015 12:54pm Platelet Count 226 T/MM3 130-400 06/27/2016 12:31p 06/27/2016 12:54pm Neutrophils % (Manual) 73.0 % H 33-66 06/27/2016 12:31p 06/27/2016 1: 03pm Band Neutrophils % 3.0 % 0-6 06/27/2016 12:31p 06/27/2016 1:03pm Lymphocytes % (Manual) 17.0 % L 23-45 06/27/2016 12:31p 06/27/2016 1: 03pm Monocytes % (Manual) 1.0 % 0-9.0 06/27/2016 12:31p 06/27/2016 1:03pm Eosinophils % (Manual) 6.0 % H 0-4 06/27/2016 12:31p 06/27/2016 1:03pm Band Neutrophils # 0.3 T/MM3 06/27/2016 12:31p 06/27/2016 1:03pm Absolute Neutrophils (Manual) 8.0 T/MM3 H 1.8-7.7 06/27/2016 12:31p 03/2016 1:03pm Lymphocytes # (Manual) 1.9 T/MM3 1-4.8 06/27/2016 12:31p 06/27/2016 1: 03pm Monocytes # (Manual) 0.1 T/MM3 0-0.8 06/27/2016 12:31p 06/27/2016 1: 03pm Eosinophils # (Manual) 0.7 T/MM3 H 0-0.5 06/27/2016 12:31pm 06/27/2016 1 :03pm Red Cell Morphology Comment NORMAL 06/27/2016 12:31p 06/27/2016 1: 03pm Icterus Index < 2 0-7 06/27/2016 12:31p 06/27/2016 1:06pm Chemistry Specimen Hemolysis < 15 0-25 06/27/2016 12:31p 06/27/2016 1:06pm 0-25: Specimen Exhibited No Hemolysis. Turbidity < 20 0-20 06/27/2016 12:31pm 06/27/2016 1:06pm Sodium Level 141 MEQ/L 134-144 06/27/2016 12:31p 06/27/2016 1:06pm Potassium Level 4.2 MEQ/L 3.6-5 06/27/2016 12:31pm 06/27/2016 1:06pm Chloride Level 105 MEQ/L 98-107 06/27/2016 12:31p 06/27/2016 1:06pm Carbon Dioxide Level 23 MEQ/L 22-30 06/27/2016 12:31p 06/27/2016 1: 06pm Anion Gap 13 MEQ/L 5-15 06/27/2016 12:31p 06/27/2016 1:06pm Blood Urea Nitrogen 12.0 MG/DL 9-20 06/27/2016 12:31pm 06/27/2016 1: 06pm Creatinine 0.8 MG/DL 0.8-1.5 06/27/2016 12:31pm 06/27/2016 1:06pm BUN/Creatinine Ratio 15 RATIO 6-26 06/27/2016 12:31pm 06/27/2016 1: 06pm Glomerular Filtration Rate Calc 104 06/27/2016 12:31pm 06/27/2016 1 :06pm Glucose Level 88 MG/DL 75-110 06/27/2016 12:31pm 06/27/2016 1:06pm Calculated Osmolality 270 MOSM/KG 261-280 06/27/2016 12:31pm 2015 1:06pm Calcium Level 8.5 MG/DL 8.4-10.2 06/27/2016 12:31pm 06/27/2016 1:06pm Acetaminophen Level < 10 UG/ML L 10-06/27/2016 12:31pm 06/27/2016 1: 06pm TOXIC <4 HR POST INGESTION: >150 MG/L; TOXIC <12 HR POST INGESTION: >50 MG/L Salicylates Level < 1.0 MG/DL L 2-20 06/27/2016 12:31pm 06/27/2016 1: 06pm Alcohol, Quantitative <10 MG/DL <10 06/27/2016 12:31pm 06/27/2016 1: 06pm [place] Level < 0.2 MMOL/L L 0.6-1.2 06/27/2016 12:31pm 06/27/2016 2: 10pm Thyroid Stimulating Hormone (TSH) < 0.02 MIU/L L 0.47-4.68 06/27/2016 12: 31pm 06/27/2016 3:31pm Urine Collection Type [place] 06/27/2016 12:27pm 06/27 12:40pm Urine Color YELLOW YELLOW 06/27/2016 12:27pm 06/27/2016 12:40pm Urine Turbidity CLEAR CLEAR 06/27/2016 12:27pm 06/27/2016 12:40pm Urine Specific [place] 1.025 1.015-1.025 06/27/2016 12:27pm 2015 12:40pm Urine pH 6.5 5.0-8.0 06/27/2016 12:27pm 06/27/2016 12:40pm Urine Leukocyte Esterase NEGATIVE NEGATIVE 06/27/2016 12:27pm 2015 12:40pm Urine Nitrite NEGATIVE NEGATIVE 06/27/2016 12:27pm 06/27/2016 12: 40pm Urine Protein NEGATIVE NEGATIVE 06/27/2016 12:27pm 06/27/2016 12: 40pm Urine Glucose (UA) NEGATIVE NEGATIVE 06/27/2016 12:27pm 06/27/2016 12 :40pm Urine Ketones NEGATIVE NEGATIVE 06/27/2016 12:27pm 06/27/2016 12: 40pm Urine Urobilinogen 1.0 EU/DL NORMAL 06/27/2016 12:27pm 06/27/2016 12: 40pm Urine Bilirubin NEGATIVE NEGATIVE 06/27/2016 12:27pm 06/27/2016 12: 40pm Urine Blood NEGATIVE NEGATIVE 06/27/2016 12:27pm 06/27/2016 12:40pm Urinalysis Comment MICROSCOPIC NOT IND. 06/27/2016 12:27pm 2015 12:40pm Procedures No known history of procedures. Encounters Encounter Location Arrival/Admit Date Discharge/Depart Date Attending Provider Departed Emergency Room [facility] 06/27/16 10:22am 06/27/16 4: 14pm ROSIE CRAVEN MD Departed Emergency Room [facility] 06/20/16 2:38pm 06/20/16 8: 32pm ROSIE CRAVEN MD Recent Diagnosis
--- OUTSIDE RECORDS SUMMARY | 2017-02-03 09:04 | XMS REPORT ---
Author Angelica Hanson Organization [employer] Address Unknown Phone Unavailable Care Team Providers Care Talcer Name Role Phone Angelica Pinon CP Unavailable Allergies, Adverse Reactions, Alerts Substance Reaction Event Type N.K.D.A. Info Not Available Non Drug Allergy Problems Problem Type Condition Code Onset Dates Condition Status Assessment Encounter for long-term current use of medication Z79.899 Active Assessment Psoriasis L40.9 Active Problem Hyperthyroidism E05.90 Active Medications Medication Code System Code Instructions Start Date End Date Status Dosage Trazodone HCl [facility] [address]-20 100 MG Orally Once a day 2 tablet at bedtime Ferrous Gluconate [facility] [address]-46 324 (38 Fe) MG Orally not defined Protonix [facility] [address]-26 40 MG Orally Once a day 1 tablet [place] Carbonate [facility] [address]-50 150 MG Orally Twice every day not defined Aripiprazole [facility] [address]-84 15 MG Orally Once a day 1 tablet Methimazole [facility] [address]-36 5 MG Orally 3 Times a day 2 tablet Clobetasol Propionate [facility] [address]-58 0.05 % Externally Twice a day Sep 02, 2016 Oct 02, 2016 1 application to affected area Aspir-81 [facility] [address]-49 81 MG Orally Once a day Jul 15, 2016 Sep 13, 2016 1 tablet Metoprolol Tartrate [facility] [address]-40 25 MG Orally Twice a day Jul 15, 2016 1/2 tablet Procedures Procedure Coding System Code Date OFFICE VISIT, EST-LOW COMPLEXITY (15 MIN.) CPT-4 35684 Sep 02, 2016 [facility] visit Established Patient CPT-4 G0467 Sep 02, 2016 Vital Signs Date/Time: Sep 02, 2016 Temperature 99.5 F Height 64 in Weight 219.8 lbs Blood Pressure Diastolic 60 mm Hg Blood Pressure Systolic 110 mm Hg Cardiac Monitoring Heart Rate 90 /min BMI 37.72 Index Oximetry 98 % Results No Known Results Summary Purpose [employer] Submission
--- OUTSIDE RECORDS SUMMARY | 2017-02-03 09:04 | XMS REPORT | Continuity of Care Document ---
Author Author Jada Brand MA Organization Ambulatory Address Unknown Phone Unavailable Care Team Providers Care Sales Contractor Name Role Phone [facility], . 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 - *Uncontrolled Thyrotoxicosis without mention of goiter or other cause, and without mention of thyrotoxic crisis or storm - *Uncontrolled Thyrotoxicosis without mention of goiter or other cause, and without mention of thyrotoxic crisis or storm - Improved Family History Family Member Diagnosis Age At Onset Status Paternal aunt (Alive) Diabetes (Unknown) Mother (Alive) CVA (Stroke) (Unknown) (Alive) (Unknown) Social History Social History Element Description Quantity alcohol Allergies, Adverse Reactions, Alerts Substance Reaction Severity Status Unknown Medications Medication Instructions Dosage Effective Dates (start - stop) Status LITHIUM CARBONATE (unknown strength) take 1 capsule by oral route 3 times every day - Active methimazole 10 mg tablet take 2 tabs a.m. 1 tab p.m. - Active Immunizations Vaccine Date Status Comments Unknown Results Test Name Date and Time Measure Units Reference Range Abnormal Flag Comments Unknown Vital Signs Date / Time: Height Weight Pulse Rate Blood Pressure Temperature /14:21:00 61.97 in 179.90 lbs 88 /min 122/80 mm[Hg] Procedures Procedure Date Unknown Encounters Encounter Location Date Patient Visit [facility] Patient Visit [facility] Patient [facility] Advance Directives Directive Effective Date Unknown
--- OUTSIDE RECORDS SUMMARY | 2017-02-03 09:04 | XMS REPORT ---
Author Angelica Hanson Organization [employer] Address Unknown Phone Unavailable Care Team Providers Care Plush Dresser Name Role Phone Angelica Pinon CP Unavailable Allergies No Known Allergies Problems Problem Type Condition Code Onset Dates Condition Status Problem Hyperthyroidism E05.90 Active Medications No Known Medications Results No Known Results Summary Purpose [employer] Submission
--- OUTSIDE RECORDS SUMMARY | 2017-02-03 09:04 | XMS REPORT ---
Author Angelica Hanson Organization [employer] Address Unknown Phone Unavailable Care Team Providers Care Thumb Sewer Name Role Phone Angelica Pinon CP Unavailable Allergies No Known Allergies Problems Problem Type Condition Code Onset Dates Condition Status Assessment Hyperthyroidism E05.90 Active Problem Hyperthyroidism E05.90 Active Medications Medication Code System Code Instructions Start Date End Date Status Dosage [place] Carbonate [facility] [address]-65 150 MG Orally Twice every day not defined Aspir-81 [facility] [address]-63 81 MG Orally Once a day Jul 15, 2016 Sep 13, 2016 1 tablet Trazodone HCl [facility] [address]-07 150 MG Orally Once a day 1 tablet at bedtime Methimazole [facility] [address]-98 5 MG Orally 3 Times a day 2 tablet Metoprolol Tartrate [facility] [address]-14 25 MG Orally Twice a day Jul 15, 2016 1/2 tablet Aripiprazole [facility] [address]-83 15 MG Orally Once a day 1 tablet Procedures Procedure Coding System Code Date T3 FREE CPT-4 09780 Jul 29, 2016 T4 FREE CPT-4 15172 Jul 29, 2016 Results No Known Results Summary Purpose [employer] Submission
--- OUTSIDE RECORDS SUMMARY | 2017-02-03 09:04 | XMS REPORT ---
Author Angelica Hanson Organization [employer] Address Unknown Phone Unavailable Care Team Providers Care Paper Carrier Name Role Phone Angelica Pinon CP Unavailable Allergies No Known Allergies Problems Problem Type Condition Code Onset Dates Condition Status Problem Hyperthyroidism E05.90 Active Medications No Known Medications Results No Known Results Summary Purpose [employer] Submission
--- OUTSIDE RECORDS SUMMARY | 2017-02-03 09:04 | XMS REPORT | Continuity of Care Document ---
Author Author [facility] Organization [facility] Address Unknown Phone Unavailable Support Name Relationship Address Phone JOAN HARRIS MD Caregiver [address] [facility] [address] [place] [address] Unavailable SANDEE GREENBERG APRN Caregiver [address] [place] [address] Unavailable ELISABET MOSQUERA Next Of Kin Unknown [phone] Insurance Providers Guarantor Alfonzo Mosquera Address [address] [place] [address] Email DENIED/NO TO PT [facility] Payer Medicare Policy Number [id number] Subscriber's Name Alfonzo Mosquera Relationship 18 Self Advance Directives Directive Response Recorded Date/Time Ordered Resuscitation Status Full Code 10/06/16 6:05pm Resuscitation Documents on File No 10/07/16 1:20pm DPOA for Healthcare Only No 10/07/16 1:20pm Living Will No 10/07/16 1:20pm Problems Active Problems Medical Problem Onset Date [...] Mg Tablet 10 Mg Oral Daily 10/24/15 [place] Carbonate 150 Mg Capsule 150 Mg Oral Twice A Day 06/27/16 Metoprolol Tartrate 25 Mg Tablet 50 Mg Oral Twice Daily With Meals 06/27/16 Trazodone Hcl 100 Mg Tablet 1-2 Tab Oral Bedtime as needed for Sleep 10/24/15 Past Home Medications Medication Directions Ordered Status Aspirin (Aspir 81) 81 Mg Tablet.dr 81 Mg Oral Daily 06/27/16 Discontinued Docusate Sodium 100 Mg Capsule, 100 Mg Oral Twice A Day 06/27/16 Discontinued Folic Acid 1 Mg Tablet, 1 Mg Oral Daily 06/27/16 Discontinued Methimazole 10 Mg Tablet, 10 Mg Oral Three Times A Day 10/24/15 Discontinued Methimazole 10 Mg Tablet, 20 Mg Oral Twice A Day 06/27/16 Discontinued Oxycodone Hcl 5 Mg Tablet, 5 Mg Oral Every 3 Hours as needed for Pain Discontinued Pantoprazole Sodium 40 Mg Tablet.dr, 40 Mg Oral Before Breakfast 06/27/16 Discontinued Sennosides (Senna) 8.6 Mg Tablet, 8.6 Mg Oral Daily as needed for Constipation 06/27/16 Discontinued Thiamine (Thiamine Hcl) 100 Mg Tablet, 100 Mg Oral Daily 06/27/16 Discontinued Social History Social History Problem Response Recorded Date/Time Onset Date Status Reason for Hospitalization heart cath 10/07/2016 5:35pm Not Applicable Not Applicable Chewing Tobacco Status No 10/07/2016 1:28pm Not Applicable Not Applicable Hx Substance Use No 10/07/2016 1:28pm Not Applicable Not Applicable Hx Alcohol Use No 10/07/2016 1:28pm Not Applicable Not Applicable Has the pt used tobacco in the last 12 months No 10/07/2016 1:28pm Not Applicable Not Applicable Tobacco Usage none 10/24/2015 3:34pm Not Applicable Not Applicable Query Response Start Date Stop Date Smoking Status Former smoker Hospital Discharge Instructions Instructions: Care Instructions: I was in the hospital because (patient own words): HEART CATH Discharge Diet: Resume heart healthy diet Discharge Activity: Limit activity for 2 days. No lifting more than 10 pounds, no pushing or pulling for 1 week. Follow Up Appointments: Follow up with Dr. Harris on:10/21/16 at 11:10 Pending Lab / Results: No Pending Lab Patient Instructions: Do not drive, operate machinery or drink alcohol for 2 days. New prescriptions: Expected Signs/Symptoms: bruising and tenderness at site Notify Physician If: Site is bleeding, abnormal drainage, increased pain or fever of 101.5 or more. During Business Hours:: Please call the physician's office at [phone] After Business Hours:: Please call [phone] and have the twisting press operator page the physician. Pain Management/Treatment: NA Wound/Incision Care: Keep site clean and dry. No tub baths or swimming for 1 week. You may shower. Condition at time of discharge: Good Plan of Care Discharge Date 10/07/16 5:45pm Instructions/Education Provided [facility] [place] [facility] Prescriptions See Medication Section Functional Status Query Response Date Recorded Mobility Status Ambulatory October 07, 2016 1:00pm Assistive Devices None October 07, 2016 1:00pm Activity Limitations None October 07, 2016 1:00pm Feeding Ability Independent October 07, 2016 1:00pm Toileting Ability Independent October 07, 2016 1:00pm Grooming Ability Independent October 07, 2016 1:00pm Dressing Ability Independent October 07, 2016 1:00pm Driving Ability Dependent October 07, 2016 1:00pm Housework Ability Independent October 07, 2016 1:00pm Meal Preparation Ability Independent October 07, 2016 1:00pm Stair Climbing Ability Independent October 07, 2016 1:00pm Ability to complete ADL's impeded by No change October 07, 2016 1:20pm Cognitive/Perceptual Impairments None October 07, 2016 1:00pm Preferred Method of Learning Demonstration Listening Hands on October 07, 2016 1:00pm Allergies, Adverse Reactions, Alerts No known allergies. Immunizations Query Response on File Recorded Date/Time Hx Influenza Vaccination No 10/07/16 1:28pm Hx Pneumococcal Vaccination No 10/07/16 1:28pm Hx Influenza Vaccination No 10/07/16 1:28pm Influenza Vaccine Hx NONE 06/27/16 10:47am Vital Signs Acute Vital Signs Vital Response Date/Time Temperature (Fahrenheit) 98.4 deg F (96.8 - 99.1) 10/07/2016 3:23pm Temperature (Calculated Celsius) 36.60169 degrees C (36.0 - 37.3) 10/07/2016 3:23pm Temperature Source Oral 10/07/2016 3:23pm Pulse Rate (adult) 101 bpm (60 - 100) 10/07/2016 5:28pm Respiratory Rate 26 breaths/min (10 - 20) 10/07/2016 5:28pm O2 Sat by Pulse Oximetry 98 % (90 - 100) 10/07/2016 5:28pm Oxygen Delivery Method Room Air 10/07/2016 5:28pm Oxygen Delivery Method Room Air 10/07/2016 1:20pm Blood Pressure 119/59 mm Hg 10/07/2016 5:28pm Blood Pressure Source Automatic Cuff 10/07/2016 5:28pm Height (Feet) 5 feet 10/07/2016 1:19pm Height (Inches) 4.00 inches 10/07/2016 1:19pm Weight (Kilograms) 96.600 kg 10/07/2016 1:19pm Body Mass Index (BMI) 36.6 10/07/2016 1:19pm Results Laboratory Results Test Name Result Units Flags Reference Collection Date/Time Result Date/ Time Comments White Blood Count 8.4 T/MM3 4.5-11.0 10/07/2016 1:10/07/2016 1: 32pm Red Blood Count 6.60 M/MM3 H 4.50-5.90 10/07/2016 1:10/07/2016 1: 32pm Hemoglobin 13.6 GM/DL 13.5-17.5 10/07/2016 1:10/07/2016 1:32pm Hematocrit 42.0 % 41-53 10/07/2016 1:10/07/2016 1:32pm Mean Corpuscular Volume 63.6 UM3 L 80-100 10/07/2016 1:10/07/2016 1 :32pm Mean Corpuscular Hemoglobin 20.6 UUG L 26-34 10/07/2016 1:2015 1:32pm Mean Corpuscular Hemoglobin Concent 32.4 GM/DL 31-37 10/07/2016 1:10/07/2016 1:32pm RDW Standard Deviation 33.2 FL L 36.9-50.2 10/07/2016 1:10/07/2016 1:32pm Platelet Count 212 T/MM3 130-400 10/07/2016 1:10/07/2016 1:32pm Neutrophils % (Manual) 76.0 % H 33-66 10/07/2016 1:10/07/2016 1: 56pm Lymphocytes % (Manual) 17.0 % L 23-45 10/07/2016 1:10/07/2016 1: 56pm Monocytes % (Manual) 7.0 % 0-9.0 10/07/2016 1:10/07/2016 1:56pm Absolute Neutrophils (Manual) 6.4 T/MM3 1.8-7.7 10/07/2016 1:10/07 1:56pm Lymphocytes # (Manual) 1.4 T/MM3 1-4.8 10/07/2016 1:10/07/2016 1: 56pm Monocytes # (Manual) 0.6 T/MM3 0-0.8 10/07/2016 1:20pm 10/07/2016 1: 56pm Red Cell Morphology Comment ABNORMAL 10/07/2016 1:20pm 10/07/2016 1 :56pm Poikilocytosis 1+ 10/07/2016 1:20pm 10/07/2016 1:56pm Tear Drop Cells 1+ 10/07/2016 1:20pm 10/07/2016 1:56pm Icterus Index < 2 0-7 10/07/2016 1:pm 10/07/2016 1:40pm Chemistry Specimen Hemolysis 98 H 0-25 10/07/2016 1:20pm 10/07/2016 1: 40pm 71-285: Specimen Exhibited Moderate Hemolysis - can falsely elevate K (Potassium), Troponin I, CA 19-9, PTH, CSF Glucose, Urine Protein, and can falsely decrease Phenytoin. Turbidity < 20 0-20 10/07/2016 1:20pm 10/07/2016 1:40pm Sodium Level 143 MEQ/L 134-144 10/07/2016 1:20pm 10/07/2016 1:40pm Potassium Level 4.2 MEQ/L 3.6-5 10/07/2016 1:20pm 10/07/2016 1:40pm Chloride Level 105 MEQ/L 98-107 10/07/2016 1:20pm 10/07/2016 1:40pm Carbon Dioxide Level 19 MEQ/L L 22-30 10/07/2016 1:20pm 10/07/2016 1: 40pm Anion Gap 19 MEQ/L H 5-15 10/07/2016 1:20pm 10/07/2016 1:40pm Blood Urea Nitrogen 16.0 MG/DL 9-20 10/07/2016 1:20pm 10/07/2016 1: 40pm Creatinine 0.8 MG/DL 0.8-1.5 10/07/2016 1:20pm 10/07/2016 1:40pm BUN/Creatinine Ratio 20 RATIO 6-26 10/07/2016 1:20pm 10/07/2016 1:40pm Glomerular Filtration Rate Calc 104 10/07/2016 1:20pm 10/07/2016 1: 40pm Glucose Level 88 MG/DL 75-110 10/07/2016 1:20pm 10/07/2016 1:40pm Calculated Osmolality 275 MOSM/KG 261-280 10/07/2016 1:20pm 10/07/2016 1:40pm Calcium Level 9.1 MG/DL 8.4-10.2 10/07/2016 1:20pm 10/07/2016 1:40pm Procedures No known history of procedures. Encounters Encounter Location Arrival/Admit Date Discharge/Depart Date Attending Provider Departed [facility] 10/07/16 12:53pm 10/07/16 5:45pm JOAN HARRIS MD
--- OUTSIDE RECORDS SUMMARY | 2017-02-03 09:04 | XMS REPORT | Referral Summary ---
Author Author [facility] Organization [facility] Address Unknown Phone Unavailable Care Team Providers Care Electronic Semiconductor Processor Name Role Phone No PCP, Pt States Primary Care Physician [phone] Encounter VC Date(s): 06/20/16 - 06/26/16 [facility] [address] [place] [address] Discharge Disposition: 01-Home or Self Care Attending Physician: Cony Todd DO Admitting Physician: Jad Estrada MD Vital Signs Most recent to 1 oldest [Reference Range]: Temperature Oral 36.6 degC [35.8-37.3 degC] (06/26/16 9:14 AM) Temperature Temporal 37.2 degC Artery [36.3-37.8 (06/24/16 12:00 PM) degC] Peripheral Pulse 108 bpm Rate [60-100 bpm] *HI* (06/26/16 9:14 AM) Heart Rate Monitored 88 bpm [60-100 bpm] (06/26/16 4:13 AM) Respiratory Rate 16 br/min [14-20 br/min] (06/26/16 9:14 AM) Blood Pressure 148/77 mmHg [90-140/60-90 mmHg] *HI* (06/26/16 9:14 AM) Mean Arterial 96 mmHg Pressure, Cuff (06/24/16 12:00 PM) SpO2 99 % (06/26/16 9:14 AM) Remote Telemetry Ongoing (06/24/16 8:15 PM) Problem List Condition Effective Dates Status Health Status Informant Acute Active pain(Confirmed) At risk for Active infection(Confirmed) 1 At risk of pressure Active sore(Confirmed) Cardiac Active disorder(Confirmed)2 Knowledge Active deficit(Confirmed)3 Tissue perfusion Active alteration(Confirmed )4 1Problem added automatically by system based on initiation of At Risk for Infection in Nutrition Plan of Care 2Problem added automatically by system based on initiation of Cardiac Output/ Ineffective Cardiac Perfusion Plan of Care 3Problem added automatically by system based on initiation of Knowledge Deficit Plan of Care 4Problem added automatically by system based on initiation of Tissue Perfusion Cerebral Plan of Care Allergies, Adverse Reactions, Alerts No Known Medication Allergies Medications aspirin 81 mg oral delayed release tablet 81 mg 1 tabs, Oral, Daily, 0 Refill(s) Start Date: 06/25/16 Status: Ordered lithium 150 mg oral capsule 150 mg 1 caps, Oral, BID, 0 Refill(s) Start Date: 06/25/16 Status: Ordered methimazole 5 mg oral tablet 10 mg 2 tabs, Oral, TID, # 180 tabs, 0 Refill(s), 2 tabs Oral TID Start Date: 06/25/16 Status: Ordered metoprolol tartrate 50 mg oral tablet 50 mg 1 tabs, Oral, BID, # 60 tabs, 0 Refill(s) Start Date: 06/25/16 Stop Date: 07/25/16 Status: Ordered Protonix 40 mg oral delayed release tablet 40 mg 1 tabs, Oral, Before Breakfast, # 30 tabs, 0 Refill(s), 1 tabs Oral Before Breakfast Start Date: 06/25/16 Status: Ordered traZODone 200 mg, Oral, Bedtime (once a day), Sleep, 100 mg - 200 mg, 0 Refill(s) Start Date: 06/20/16 Status: Ordered Results Hematology Most recent to 1 oldest [Reference Range]: WBC [4.8-10.8 8.4 10*3/uL 10*3/uL] (06/25/16 5:25 AM) RBC [4.60-6.20] 5.55 (06/25/16 5:25 AM) Hgb [14.0-18.0 11.0 gm/dL gm/dL] *LOW* (06/25/16 5:25 AM) Hct [42.0-52.0 %] 34.0 % *LOW* (06/25/16 5:25 AM) MCV [82.0-99.0 fL] 61.3 fL *LOW* (06/25/16 5:25 AM) MCH [27.0-32.0 pg] 19.8 pg *LOW* (06/25/16 5:25 AM) MCHC [32.0-36.0 32.4 gm/dL gm/dL] (06/25/16 5:25 AM) RDW [11.5-14.5 %] 15.4 % *HI* (06/25/16 5:25 AM) Platelet [150-400 154 10*3/uL 10*3/uL] (06/25/16 5:25 AM) Immature 0.3 % Granulocytes (06/23/16 4:12 AM) [0.0-1.0 %] Neutrophils [51-75 71 % %] (06/24/16 3:55 AM) Band Man [0-8 %] 1 % (06/24/16 3:55 AM) Loving Man [0-1 %] 1 % (06/24/16 3:55 AM) Lymphocytes [20-46 19 % %] *LOW* (06/24/16 3:55 AM) Monocytes [4-11 %] 3 % *LOW* (06/24/16 3:55 AM) Eosinophils [0-4 %] 6 % *HI* (06/24/16 3:55 AM) Basophils [0-2 %] 0 % (06/24/16 3:55 AM) Neutro Absolute 5.18 10*3 [1.90-7.00 10*3] (06/24/16 3:55 AM) Lymph Absolute 1.37 10*3 [0.80-3.30 10*3] (06/24/16 3:55 AM) Ida Absolute 0.22 10*3 [0.30-1.00 10*3] *LOW* (06/24/16 3:55 AM) Eos Absolute 0.43 10*3 [0.00-0.50 10*3] (06/24/16 3:55 AM) Baso Absolute 0.01 10*3 [0.00-0.20 10*3] (06/24/16 3:55 AM) Giant Platelets Occasional *ABN* (06/24/16 3:55 AM) Hypochrom Occasional *ABN* (06/24/16 3:55 AM) Microcyte Present *ABN* (06/24/16 3:55 AM) Target Cell Occasional *ABN* (06/22/16 3:10 AM) Ovalocytes Occasional *ABN* (06/23/16 4:12 AM) Nucleated RBC 0.0 /100 WBC Automated [0 /100 (06/24/16 3:55 AM) WBC] Differential Reviewed (06/24/16 3:55 AM) Coagulation Most recent to 1 oldest [Reference Range]: INR [0.9-1.2] 1.4 *HI* (06/21/16 3:36 AM) Chemistry Most recent to 1 oldest [Reference Range]: Sodium Lvl [136-144 141 mEq/L mEq/L] (06/25/16 5:25 AM) Potassium Lvl 3.9 mEq/L [3.6-5.1 mEq/L] (06/25/16 5:25 AM) Chloride [99-109 110 mEq/L mEq/L] *HI* (06/25/16 5:25 AM) CO2 [22-32 mEq/L] 24 mEq/L (06/25/16 5:25 AM) AGAP [3-20] 7 (06/25/16 5:25 AM) BUN [4-20 mg/dL] 7 mg/dL (06/25/16 5:25 AM) Glucose Lvl [70-100 100 mg/dL mg/dL] (06/25/16 5:25 AM) Creatinine Lvl 0.71 mg/dL [0.64-1.27 mg/dL] (06/25/16 5:25 AM) eGFR [>60] >60 1 (06/25/16 5:25 AM) Calcium Lvl 8.3 mg/dL [8.6-10.0 mg/dL] *LOW* (06/25/16 5:25 AM) Albumin Lvl [3.5-4.8 2.5 gm/dL gm/dL] *LOW* (06/24/16 5:14 AM) Total Protein 5.7 gm/dL [6.1-7.9 gm/dL] *LOW* (06/24/16 5:14 AM) Globulin [1.9-4.3 3.2 gm/dL gm/dL] (06/24/16 5:14 AM) ALT [17-63 U/L] 208 U/L *HI* (06/24/16 5:14 AM) AST [15-41 U/L] 106 U/L *HI* (06/24/16 5:14 AM) Alk Phos [26-104 94 U/L U/L] (06/24/16 5:14 AM) Bili Total [0.2-1.2 1.7 mg/dL 2 mg/dL] *HI* (06/24/16 5:14 AM) Bili Direct [0.0-0.2 0.9 mg/dL mg/dL] *HI* (06/23/16 4:12 AM) Bili Indirect 1.3 mg/dL [0.0-1.0 mg/dL] *HI* (06/23/16 4:12 AM) Magnesium Lvl 1.7 mg/dL [1.8-2.5 mg/dL] *LOW* (06/24/16 3:55 AM) Troponin [<0.06 0.06 ng/mL 3 ng/mL] *CRIT* (06/21/16 3:36 AM) Lipase Lvl [8-48 25 U/L U/L] (06/21/16 3:36 AM) Blood Glucose, 131 mg/dL Capillary [70-100 *HI* mg/dL] (06/23/16 12:08 AM) Chol [0-200 mg/dL] 70 mg/dL (06/20/16 10:11 PM) Trig [0-150 mg/dL] 67 mg/dL (06/20/16 10:11 PM) HDL [>40 mg/dL] 15 mg/dL *ABN* (06/20/16 10:11 PM) LDL [0-100 mg/dL] 42 mg/dL (06/20/16 10:11 PM) VLDL Cholesterol 13 mg/dL [0-30 mg/dL] (06/20/16 10:11 PM) Cardiac Risk 4.7 [0.0-5.7] (06/20/16 10:11 PM) Hep A IgM Negative (06/21/16 3:36 AM) Hep Bs Ag Negative (06/21/16 3:36 AM) Hep C Ab Negative (06/21/16 3:36 AM) Hep B Core IgM Negative (06/21/16 3:36 AM) T4 Free [0.6-1.1 5.8 ng/dL ng/dL] *HI* (06/20/16 10:11 PM) TSH with Reflex Free 0.05 T4 [0.35-5.50] *LOW* (06/20/16 10:11 PM) 1Result Comment: Multiply eGFR results by 1.21 for race. 2Result Comment: Naproxen, specifically the metabolite O-desmethylnaproxen, may cause spurious elevation in Total Bilirubin levels. 3Result Comment: Critical value called, and read-back verified. Called to Nicole Taylor 06/21/2016 04:36 Therapeutic Drug Monitoring Most recent to 1 oldest [Reference Range]: [place] Lvl 0.17 mEq/L [0.60-1.20 mEq/L] *LOW* (06/22/16 3:10 AM) Acetaminophen Lvl <10 ug/mL [10-30 ug/mL] (06/22/16 3:10 AM) Urinalysis Most recent to 1 oldest [Reference Range]: UA Color Yellow (06/24/16 9:10 AM) UA Appear Clear (06/24/16 9:10 AM) UA pH [5.0-8.0] 6.0 (06/24/16 9:10 AM) UA Leuk Est Pos 1+ [Negative] *ABN* (06/24/16 9:10 AM) UA Nitrite Negative [Negative] (06/24/16 9:10 AM) UA Protein Negative [Negative] (06/24/16 9:10 AM) UA Glucose Negative [Negative] (06/24/16 9:10 AM) UA Ketones Negative [Negative] (06/24/16 9:10 AM) UA Urobilinogen >=4.0 mg/dL [<1.0 mg/dL] (06/24/16 9:10 AM) UA Bili [Negative] Negative (06/24/16 9:10 AM) UA Blood [Negative] Pos 3+ *ABN* (06/24/16 9:10 AM) UA Spec Grav 1.005 [1.003-1.030] (06/24/16 9:10 AM) Type Clean Catch (06/24/16 9:10 AM) UA WBC [0-4] 5-10 *ABN* (06/24/16 9:10 AM) UA RBC [0-2 /HPF] >50 /HPF *ABN* (06/24/16 9:10 AM) Epithelial Cells None Seen (06/24/16 9:10 AM) UA Bacteria Occasional *ABN* (06/24/16 9:10 AM) UA Mucous Present (06/24/16 9:10 AM) Microbiology Reports TEST: Blood Culture STATUS: Order in Progress BODY SITE: SOURCE: Blood COLLECTED DATE/TIME: 06/21/16 10:56 AM Blood Culture No growth after 12 hours incubation. Nursing unit will be called if growth is detected. - A blood culture drawn through a catheter with a differential time to positivity at least 2 hours sooner than one drawn from a peripheral vein at the same time suggests a catheter-related bloodstream infection. TEST: Blood Culture STATUS: Order in Progress BODY SITE: SOURCE: Blood COLLECTED DATE/TIME: 06/21/16 10:51 AM Blood Culture No growth after 12 hours incubation. Nursing unit will be called if growth is detected. - A blood culture drawn through a catheter with a differential time to positivity at least 2 hours sooner than one drawn from a peripheral vein at the same time suggests a catheter-related bloodstream infection. Immunizations No data available for this section Procedures No data available for this section Social History Social History Type Response Smoking Status Never smoker Assessment and Plan No data available for this section
--- OUTSIDE RECORDS SUMMARY | 2017-02-03 09:04 | XMS REPORT ---
Author Angelica Hanson Organization [employer] Address Unknown Phone Unavailable Care Team Providers Care Core Driller Name Role Phone Angelica Pinon CP Unavailable Allergies No Known Allergies Problems Problem Type Condition Code Onset Dates Condition Status Problem Hyperthyroidism E05.90 Active Medications No Known Medications Results No Known Results Summary Purpose [employer] Submission
--- NOTE | 2017-02-03 09:13 | NUR ---
PROVIDER DR. BISHOP AT BEDSIDE FOR EXAM.
--- NOTE | 2017-02-03 09:17 | NUR ---
LAB AT BEDSIDE FOR BLOOD DRAW.
--- NOTE | 2017-02-03 09:28 | NUR ---
XRAY PORTABLE XRAY AT BEDSIDE.
[2017-02-03 09:29] LABS: HCT - HEMATOCRIT 38.8 % (41-53); HGB - HEMOGLOBIN 12.5 GM/DL (13.5-17.5); MEAN CORPUSCULAR HGB 20.4 UUG (26-34); MEAN CORPUSCULAR HGB CONC(MCHC 32.2 GM/DL (31-37); MEAN CORPUSCULAR VOLUME 63.2 UM3 (80-100); RED BLOOD COUNT 6.14 M/MM3 (4.50-5.90); WBC - WHITE BLOOD COUNT 8.7 T/MM3 (4.5-11.0)
--- OUTSIDE RECORDS SUMMARY | 2017-02-03 09:31 | XMS REPORT | Continuity of Care Document ---
Author Author [facility] Organization [facility] Address Unknown Phone Unavailable Allergies Active Description [...] 09/08/2016 ORAL 15MG TAKE 1 TABLET DAILY. [place] Carbonate 150 MG Oral Capsule 07/09/2016 09/08/2016 [...] Z59.7 Insufficient social insurance and welfare support Cost, Purnima Xochitl 12/05/2016 F F31.31 Bipolar disorder, [...] Procedures Code Description [place] [address] OFFICE/OUTPATIENT VISIT, Lakeshia Dillard 11/07/2015 61272 OFFICE/OUTPATIENT VISIT, Lakeshia Dillard 11/07/2015 26715 OFFICE/OUTPATIENT VISIT, Lakeshia Dillard 01/09/2016 59377 OFFICE/OUTPATIENT VISIT, Lakeshia Dillard 01/09/2016 16298 OFFICE/OUTPATIENT VISIT, Lakeshia Dillard 04/09/2016 19969 OFFICE/OUTPATIENT VISIT, Lakeshia Dillard 04/09/2016 53403 OFFICE/OUTPATIENT VISIT, Lakeshia Dillard 07/09/2016 44987 OFFICE/OUTPATIENT VISIT, Lakeshia Dillard 07/09/2016 37292 Shweta Nielsen [id number] Shweta Nielsen [id number] OFFICE/OUTPATIENT VISIT, Lakeshia Jasso 12/01/2016 95275 OFFICE/OUTPATIENT VISIT, Lakeshia Jasso 12/01/2016 47334 INITIAL HOSPITAL CARE [place] Sally S 12/02/2016 17951 SUBSEQUENT HOSPITAL CARE CoynerSally 12/03/2016 74156 SUBSEQUENT HOSPITAL CARE CoynerSally 12/04/2016 71366 HOSPITAL DISCHARGE DAY Sally Drew 12/05/2016 Results Encounters ACCT No. Visit Date/Time Discharge Status Pt. Type Provider Facility Loc./Unit Complaint [id number] 11/05/2012 19:09:00 2011 19:03:00 DIS Inpatient Mary JEROME, [facility] on [address]
[2017-02-03] MEDS ORDERED: LITH300C3 PO (09:37)
--- NOTE | 2017-02-03 09:37 | ERPDOC ---
Departure Disposition Decision Date: Feb 03, 2017 Disposition Decision Time: 10:40 Disposition: 02 TO [facility] Impression Impression Impression: Primary Impression: Atrial fibrillation Atrial fibrillation type: paroxysmal Qualified Codes: I48.0 - Paroxysmal atrial fibrillation Additional Impression: Chest pain Chest pain type: chest pain on breathing Qualified Codes: R07.1 - Chest pain on breathing Severity: Moderate Condition: Improved Seen By: Physician only Referrals: SANDEE GREENBERG APRN (Family) Problems/Meds/Labs Reviewed?: Yes Medications reviewed and manag: Yes Follow up care ordered?: Yes Mental Status: Alert, Oriented HPI - General Medical General Chief Complaint: Chest Pain Stated Complaint: SOA,CP, MUSCLE PAIN IN RIGHT Time Seen by Provider: 09:02 Source: patient Exam Limitations: no limitations HPI - General Medical Initial Comments 46 -year-old male presents to the emergency department complaining of shortness of breath and chest pain. Patient noted onset of symptoms "a couple days ago." Symptoms have become more frequent and more pronounced in nature. Patient describes his discomfort as sharp. It is substernal. There is no radiation. He notes that the pain increases with deep breathing and improves with rest. He also notes that the shortness of breath increases with exertion. His symptoms improved with rest. Patient denies any other complaints or associated symptoms. Patient was at home when the symptoms began. Symptoms were persistent in nature since onset. Patient also notes lower back spasms that have been persistent in nature for several days. Patient also notes feeling slightly light headed but denies MARMOLEJO or true dizziness with dyspnea. Occurred At: home Onset: Gradual Allergies: Coded Allergies: No Known Allergies (Unverified , 02/03/17) Past History Past Medical History Metabolic: hyperthyroidism Cardiac: A-fib, other Psychological: bipolar, depression Surgical History Denies Surgeries Family History Family PMH: FOUND: other (Thyroid problems. ) Vaccines Hx Influenza Vaccination: No Hx Pneumococcal Vaccination: No Social History Smoking Status: Never smoker Substance Use Type: does not use Alcohol Intake: none Review of Systems Constitutional Constitutional: DENIES: chills, fever Eyes General: DENIES: erythema, exudate Lids/Accessories: DENIES: erythema, swelling Vision: DENIES: acuity, blurring ENMT Ears: DENIES: drainage, pain Hearing: DENIES: hearing loss Balance: DENIES: ataxia, falling to one side Sinuses: DENIES: congestion, pain Nose: DENIES: nosebleeds, pain Mouth/Throat: DENIES: painful swallowing, sore throat Teeth: DENIES: pain Jaw: DENIES: pain Cardiovascular Cardiac: chest pain, dyspnea on exertion Rhythm/Rate: DENIES: irregular beat, palpitations Vascular: DENIES: pedal edema, unilateral swelling Pulmonary Respiratory: dyspnea, pleuritic chest pain, DENIES: cough, sputum GI Upper Abdomen: DENIES: nausea, pain, vomiting Lower Abdomen: DENIES: diarrhea, pain General: DENIES: dysuria, pain Musculoskeletal General: DENIES: pain, tenderness Integumentary Skin: DENIES: itching, rash Neurological General: DENIES: headache, numbness, weakness Psychiatric Psychiatric: DENIES: emotional instability, suicidal ideation/attempt Endocrine Endocrine: DENIES: polydipsia, polyphagia Hematologic/Lymphatic Hematologic/Lymphatic: DENIES: frequent nosebleeds, lymphadenopathy Allergic/Immunological Allergic/Immunoligical: DENIES: frequent infections, hives Physical Exam General General Nourishment: well nourished, well developed, appears stated age, no acute distress, adult General Body Habitus: well groomed Vitals and Pain First Documented Vital Signs Date Time Temp Pulse Resp B/P Pulse Ox O2 Delivery O2 Flow Rate FiO2 02/03/17 09:00 97.5 84 20 129/79 99 Room Air Weight: Kilograms: Height (feet): 5 Height (inches): 4.00 Triage Pain Scale: RN VS reviewed by Provider: Yes Normal Exams: Head: Normocephalic w/o trauma Eyes: Pupils are PERRLA w/ EOMI, No scleral icterus, irritation, or foreign bodies noted ENMT: No facial trauma, nasal exudates, pharyngeal erythema, or exudates are noted Dental: No fractured, loose, or missing teeth noted Chest/Resp: Clear all mejía, with good airflow, and symmetry bilaterally CV: without murmur or gallop, Pulses 2+ all extremities, capillary refill, <2 seconds all ext., no pedal edema noted Abdomen: Bowel sounds positive, soft, non-tender, non-distended, no hepatosplenomegaly, masses or bruits noted Lymphatic: No lymphadenopathy, or lymphedema noted Musculoskeletal: No tenderness, or deformity noted, good range of motion, all extremities Integumentary: No rashes, hives, or bruising noted, hair and nails, without abnormality Neurologic: Patient is alert, and oriented, cranial nerves, motor/sensory/ cerebellar, exams w/o gross deficits, to observation Psychiatric: Patient exhibits, appropriate attention, emotion and affect Cardiovascular (brief) Comments Irregularly Irregular Differential Diagnoses Considering: Acute WI, Medication Effect, Metabolic, Pneumonia, Pulmonary Embolus Progress Results/Orders Orders Procedure Category Date Status Time Cbc W/Auto LAB 02/03/17 Complete Diff-Reflex Manual Cmp - Comprehensive LAB 02/03/17 Complete Metabolic Troponin I W LAB 02/03/17 Complete Hemolysis Index EKG EKG 02/03/17 Taken Chest 1 View RAD 02/03/17 Resulted 09:06 Normal Saline (Ns) PHA 02/03/17 Complete 10:45 Nitroglycerin PHA 02/03/17 Complete (Nitrostat) 10:45 Cta Pe/Cta Aorta CT 02/03/17 Resulted 10:38 Place In Facility: ED ADM 02/03/17 Transmitted Lab Results Laboratory Tests Test 02/03/17 09:23 White Blood Count 8.7T/MM3 Red Blood Count 6.14M/MM3 Hemoglobin 12.5GM/DL Hematocrit 38.8% Mean Corpuscular Volume 63.2UM3 Mean Corpuscular Hemoglobin 20.4UUG Mean Corpuscular Hemoglobin Concent 32.2GM/DL RDW Standard Deviation 42.5FL Platelet Count 241T/MM3 Mean Platelet Volume UM3 Immature Granulocyte % (Auto) % Neutrophils (%) (Auto) % Lymphocytes (%) (Auto) % Monocytes (%) (Auto) % Eosinophils (%) (Auto) % Basophils (%) (Auto) % Absolute Immature Granulocyte (auto T/MM3 Absolute Neutrophils (auto) T/MM3 Absolute Lymphocytes (auto) T/MM3 Absolute Monocytes (auto) T/MM3 Absolute Eosinophils (auto) T/MM3 Absolute Basophils (auto) T/MM3 Neutrophils % (Manual) 76.0% Band Neutrophils % 1.0% Lymphocytes % (Manual) 17.0% Monocytes % (Manual) 4.0% Eosinophils % (Manual) 2.0% Absolute Neutrophils (Manual) 6.6T/MM3 Band Neutrophils # 0.1T/MM3 Lymphocytes # (Manual) 1.5T/MM3 Monocytes # (Manual) 0.3T/MM3 Eosinophils # (Manual) 0.2T/MM3 Poikilocytosis 2+ Red Cell Morphology Comment Abnormal Turbidity < 20 Sodium Level 143MEQ/L Potassium Level 4.2MEQ/L Chloride Level 107MEQ/L Carbon Dioxide Level 27MEQ/L Anion Gap 9MEQ/L Blood Urea Nitrogen 15.0MG/DL Creatinine 1.0MG/DL Glomerular Filtration Rate Calc 80 BUN/Creatinine Ratio 15RATIO Glucose Level 132MG/DL Calculated Osmolality 278MOSM/KG Calcium Level 8.5MG/DL Total Bilirubin 1.20MG/DL Icterus Index < 2 Aspartate Amino Transf (AST/SGOT) 25U/L Alanine Aminotransferase (ALT/SGPT) 22U/L Alkaline Phosphatase 104U/L Troponin I < 0.012ng/ml Total Protein 7.1G/DL Albumin 3.5G/DL Globulin 3.6G/DL Albumin/Globulin Ratio 1.0RATIO Chemistry Specimen Hemolysis < 15 Progress Progress Labs/imaging were discussed in detail with the patient and family and questions are answered. Patient is given aspirin 324 mg by mouth 1 in the emergency department. Patient is given IV hydration. Patient is given a nitroglycerin subungual trial without improvement of symptoms. Patient is given parental narcotic and antiemetic medications intravenously which improved his symptoms. Patient is admitted to the service of Dr. Hall who is in agreement with the current plan of management. Patient is admitted to the hospital in improved condition. Patient and family are in agreement with the current plan of management. There are no further orders from the accepting physician is in agreement with the current plan of management. Labs/EKG/imaging were discussed in detail with Cardiology. EKG EKG : Rate: 60-100 Rhythm: atrial fibrillation [place]: normal QRS: normal Intervals: normal ST/T: normal Interpreted by: signing physician Xray Xray : Xray: CXR Portable Interpretation: Normal, Interpreted by Me, Reviewed Written Report CT CT : CT: Chest IV contrast Interpretation: Normal, Reviewed Written Report RAMIN BISHOP DO Feb 03, 2017 09:37
[2017-02-03] MEDS ORDERED: TRAZ150T80 PO (09:38)
[2017-02-03] MEDS ORDERED: RIVA20TA PO (09:38)
[2017-02-03] MEDS ORDERED: METH5TAB58 PO (09:38)
--- NOTE | 2017-02-03 09:42 | DI ---
EXAM: CHEST 1 VIEW LOCATION OF DICTATION: [place] HISTORY: ITS.REASON: afib COMPARISON: Compared to June 20, 2016 FINDINGS: The heart size is normal. The mediastinal configuration is within normal limits. There are no consolidating opacities or pleural effusions. There is no pneumothorax. The osseous structures are within normal limits for the patient's age. IMPRESSION: No acute cardiopulmonary abnormalities demonstrated. .
[2017-02-03 09:48] LABS: ALBUMIN 3.5 G/DL (3.5-5.0); ALKALINE PHOSPHATASE 104 U/L (38-126); ALT (SGPT) 22 U/L (21-72); ANION GAP 9 MEQ/L (5-15); AST (SGOT) 25 U/L (17-59); BUN/CREATININE RATIO 15 RATIO (6-26); CALCIUM 8.5 MG/DL (8.4-10.2); CHLORIDE 107 MEQ/L (98-107); CO2 - CARBON DIOXIDE 27 MEQ/L (22-30); GLOMERULAR FILTRATION RATE 80; GLUCOSE 132 MG/DL (75-110); POTASSIUM 4.2 MEQ/L (3.6-5); SODIUM 143 MEQ/L (134-144); TOTAL PROTEIN 7.1 G/DL (6.3-8.2)
--- NOTE | 2017-02-03 09:50 | NUR ---
STATUS PT APPEARS TO BE RESTING COMFORTABLY IN CART. REPORTS APPROX. 10 MINUTES AGO BEGAN EXPERIENCING DROWSINESS AND DIZZINESS. REPORTS NO CHANGE IN CHEST DISCOMFORT, WITH PAIN STILL 06/01. DR. BISHOP NOTIFIED, NO NEW ORDERS REC'D.
[2017-02-03 09:52] LABS: BAND NEUTROPHILS # 0.1 T/MM3; EOSINOPHILS # (MANUAL) 0.2 T/MM3 (0-0.5); LYMPHOCYTES # (MANUAL) 1.5 T/MM3 (1-4.8); MONOCYTES # (MANUAL) 0.3 T/MM3 (0-0.8); NEUTROPHILS #(MANUAL)-ABSOLUTE 6.6 T/MM3 (1.8-7.7); POIKILOCYTOSIS 2+; TOTAL CELLS COUNTED 100 %
--- NOTE | 2017-02-03 10:35 | NUR ---
PROVIDER DR. BISHOP AT BEDSIDE TO SPEAK WITH PT.
[2017-02-03] MEDS ORDERED: NITROGLYCERIN 0.4 MG SUBLINGUAL TABLET SL ONE (10:45)
[2017-02-03] MEDS ORDERED: NORMAL SALINE 500 ML IV ONE (10:45)
[2017-02-03] MEDS ORDERED: SALINE FLUSH 10ml SYRINGE ONE (10:47)
[2017-02-03] MEDS ORDERED: IOHEXOL 350 MG/ML 100ml INJECTION ONE (10:47)
[2017-02-03] MEDS ORDERED: NORMAL SALINE 100 ML ONE (10:47)
--- NOTE | 2017-02-03 10:49 | NUR ---
CT PT TO CT BY CART AT THIS TIME.
--- NOTE | 2017-02-03 10:56 | NUR ---
REPORT CALLED TO CHANDNI MADRIGAL ON MEDICAL UNIT. DENIES QUESTIONS.
--- OUTSIDE RECORDS SUMMARY | 2017-02-03 10:57 | XMS REPORT | Continuity of Care Document ---
Author Author [facility] Organization [facility] Address Unknown Phone Unavailable Allergies Active Description [...] 09/08/2016 ORAL 15MG TAKE 1 TABLET DAILY. [place] Carbonate 150 MG Oral Capsule 07/09/2016 09/08/2016 [...] F31.31 Bipolar disorder, current episode depressed, mild Mroales, Shweta L 11/13/2016 F Z59.7 Insufficient social [...] Z59.7 Insufficient social insurance and welfare support Baxter, Purnima Xochitl 12/05/2016 F F31.31 Bipolar disorder, [...] Procedures Code Description [place] [address] OFFICE/OUTPATIENT VISIT, Lakeshia Dillard 11/07/2015 09247 OFFICE/OUTPATIENT VISIT, Lakeshia Dillard 11/07/2015 25109 OFFICE/OUTPATIENT VISIT, Lakeshia Dillard 01/09/2016 40183 OFFICE/OUTPATIENT VISIT, Lakeshia Dillard 01/09/2016 55654 OFFICE/OUTPATIENT VISIT, Lakeshia Dillard 04/09/2016 58870 OFFICE/OUTPATIENT VISIT, Lakeshia Dillard 04/09/2016 92332 OFFICE/OUTPATIENT VISIT, Lakeshia Dillard 07/09/2016 53238 OFFICE/OUTPATIENT VISIT, Lakeshia Dillard 07/09/2016 69673 Shweta Nielsen [id number] Shweta Nielsen [id number] OFFICE/OUTPATIENT VISIT, Lakeshia Jasso 12/01/2016 13233 OFFICE/OUTPATIENT VISIT, Lakeshia Jasso 12/01/2016 33708 INITIAL HOSPITAL CARE Coyner Sally S 12/02/2016 20806 SUBSEQUENT HOSPITAL CARE CoynerSally 12/03/2016 75225 SUBSEQUENT HOSPITAL CARE CoynerSally 12/04/2016 03084 HOSPITAL DISCHARGE DAY Sally Drew 12/05/2016 Results Encounters ACCT No. Visit Date/Time Discharge Status Pt. Type Provider Facility Loc./Unit Complaint [id number] 11/05/2012 19:09:00 2011 19:03:00 DIS Inpatient Mary JEROME, Benjamin Jacob [facility] on [address]
[2017-02-03] MEDS ORDERED: ONDANSETRON 4mg/2ml INJECTION IV PRN (11:00)
[2017-02-03] MEDS ORDERED: MORPHINE SULFATE 4 MG SYRINGE IV PRN (11:00)
[2017-02-03] MEDS ORDERED: ENOXAPARIN 40 MG/0.4 ML INJECTION SQ SCH (11:00)
[2017-02-03] MEDS ORDERED: PRN ORDERS MC (11:00)
--- NOTE | 2017-02-03 11:04 | NUR ---
RETURN PT RETURNED FROM CT BY CART AT THIS TIME. PT REPORTS FEELING DIZZY AND NAUSEAOUS DOWN AT CT AROUND THE TIME THAT THE CONTRAST WAS ADMINISTERED. DENIES NO CHANGE IN CHEST DISCOMFORT AFTER SL NTG ADM. BP STABLE. DR. BISHOP NOTIFIED, NO NEW ORDERS REC'D.
--- NOTE | 2017-02-03 11:35 | DI ---
EXAM: CTA PE/CTA AORTA LOCATION OF DICTATION: [place] HISTORY: ITS.REASON: pain COMPARISON: No prior studies available for comparison. TECHNIQUE: Multiple contiguous axial images were obtained of the chest with contrast utilizing 85 mL of Omnipaque [address] angiogram protocol. Coronal, sagittal, and MIP reformatted images were utilized. Automated Exposure Control and Iterative Reconstruction dose reducing techniques were utilized. FINDINGS: The heart size is normal.Minimal pericardial effusion anteriorly. The visualized portions of the thoracic aorta and major branch vessels of the aortic arch fills with contrast homogenously and are unremarkable. There are no central pulmonary artery filling defects to suggest pulmonary artery embolism. The trachea and mainstem bronchi are patent.There is no consolidation, pleural effusion, or pneumothorax.There are no masses or nodules seen in the lung parenchyma. There is no axillary, hilar, or mediastinal lymphadenopathy. Fatty atrophy of the pancreas is noted. Moderate spondylosis of the thoracolumbar spine. No suspicious or destructive osseous lesions. IMPRESSION: 1. No evidence for pulmonary embolus. 2. Lungs are clear. No thoracic lymphadenopathy. 3. Minimal pericardial effusion anteriorly. Heart size is normal. .
[2017-02-03] MEDS ORDERED: FENTANYL 100mcg/2ml INJECTION IV ONE (11:45)
[2017-02-03] MEDS ORDERED: TRAZODONE 100 MG TABLET PO PRN (11:45)
[2017-02-03] MEDS ORDERED: ONDANSETRON 4mg/2ml INJECTION IV ONE (11:45)
--- NOTE | 2017-02-03 11:50 | NUR ---
ADMIT PT TAKEN TO MEDICAL UNIT, RM 153 BY W/C PER THIS RN. PT TRANSFERS TO BED X1 ASSIST WITH STEADY GAIT. REPORTS CHEST DISCOMFORT 4/10 AT THIS TIME.
--- NOTE | 2017-02-03 11:55 | NUR ---
Admit Patient admitted to medical unit room 153. Alert and oriented x3. Answers admit questions appropriately. States pain in chest is "maybe a 1" and denies feeling need for pain medication. Reports feeling slightly short of air after activity of moving from wheelchair to bed. Menu provided for patient to order lunch.
[2017-02-03 11:59] VITALS: Ht 162.6 cm; Wt 103.3 kg
[2017-02-03 12:03] VITALS: BP 117/67; PULSE 86; RESP 18; TEMP 96.5; O2SAT 97
[2017-02-03 12:13] VITALS: PULSE 76
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
[2017-02-03 13:50] VITALS: PULSE 86; RESP 18; O2SAT 97
[2017-02-03] MEDS ORDERED: METHIMAZOLE 5 MG PO SCH (15:00)
[2017-02-03 15:17] VITALS: BP 107/69; PULSE 74; RESP 18; TEMP 97.2; O2SAT 97
[2017-02-03] MEDS ORDERED: TRAZODONE 150 MG PO PRN (16:15)
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
--- NOTE | 2017-02-03 17:09 | NUR ---
Dismissal Patient dismissed to home at present time. Denies any chest pain or shortness of air. Understands he has follow up appointments and will have his case checker help manage those. Personal belongings and medications sent home with patient. Out of facility in wheelchair accompanied by staff.
[2017-02-03] MEDS ORDERED: POM RIVAROXABAN 20 MG TABLET PO SCH (17:30)
[2017-02-03] MEDS ORDERED: LITHIUM CARBONATE 300 MG PO SCH (21:00)
[2017-02-04] MEDS ORDERED: ASPIRIN 81 MG CHEWABLE TABLET PO SCH (09:00)
--- NOTE | 2017-02-04 16:01 | NUR ---
CM CM LVM
--- NOTE | 2017-02-06 16:09 | NUR ---
CM CM LVM
--- NOTE | 2017-02-10 15:30 | NUR ---
CM CM LVM
== END 2017-02-03 16:50 | disposition home or self-care (01) ==
LOC: ED 08:57 → EDHOLD 10:40 → MED 11:55
PROVIDERS: ADMIT Internal Medicine Cardiovascular Disease; ATTEND Internal Medicine Cardiovascular Disease
DX: R07.1 Chest pain on breathing (principal); G89.29 Other chronic pain; M54.6 Pain in thoracic spine; I48.0 Paroxysmal atrial fibrillation; E05.90 Thyrotoxicosis, unspecified without thyrotoxic crisis or storm; F31.9 Bipolar disorder, unspecified; Z79.899 Other long term (current) drug therapy; Z87.891 Personal history of nicotine dependence
CPT/HCPCS: 36415; 71010; 71275; 74175; 80053; 84484; 85025; 93005; 99284; A9270; G0378; J2405; J3010; J7050; Q9967; 99218

== ENCOUNTER → 2017-02-09 | Outpatient (CLI) | payer MEDICARE ==
[~2017-02-09] MED LIST changes: -ARIP10TA15 PO; -LITH150C PO; +LITH300C3 PO; +METH5TAB58 PO; -METO25TA6 PO; +RIVA20TA PO; -TRAZ-173 PO; +TRAZ150T80 PO
[2017-02-09 15:08] LABS: LITHIUM 0.5 MMOL/L (0.6-1.2)
== END ==
LOC: LAB 14:38
PROVIDERS: ATTEND Family Medicine
DX: F32.9 Major depressive disorder, single episode, unspecified (principal)
CPT/HCPCS: 36415; 80178

== ENCOUNTER → 2017-02-24 | Outpatient (CLI) | payer MEDICARE ==
[2017-02-24 11:37] LABS: LITHIUM 0.4 MMOL/L (0.6-1.2)
== END ==
LOC: LAB 10:38
PROVIDERS: ATTEND Family Medicine
DX: F32.9 Major depressive disorder, single episode, unspecified (principal)
CPT/HCPCS: 36415; 80178